=== PATIENT | male | born 1965 | race Caucasian/White ===

== ENCOUNTER 2016-07-19 14:20 | Emergency (ER) | payer MEDICAID ==
[~2016-07-19] VITALS: Ht 172.7 cm; Wt 112.0 kg
[2016-07-19 14:22] VITALS: BP 172/96; PULSE 105; RESP 16; TEMP 97.9; O2SAT 98
[2016-07-19] MEDS ORDERED: IBUP400T20 PO (15:11)
--- NOTE | 2016-07-19 15:11 | PD ---
HPI Chief Complaint: Psychiatric Symptoms Time Seen by Provider: 14:47 Travel History International Travel<30 days: No Contact w/Intl Traveler<30days: No Traveled to known affect area: No History of Present Illness HPI So 50-year-old man who presents to the emergency department complaining "I'm feeling pains in my body". Patient states he has pain in his right mid thigh when he flexes a certain way. He is very bizarre, probably schizophrenic. He is not known to our system here. He states he lives in [facility]. He also states he would like to get a tummy tuck always here. He's come out has for food asked several times. Does not appear to be any acute distress. History Past Medical History Narrative Medical Diabetes Social History Tobacco Use: No Review of Systems Except as stated in HPI: all other systems reviewed are Neg Physical Exam Narrative GENERAL: Well-appearing 50-year-old man, nontoxic. SKIN: Warm and dry. NECK: Trachea midline. No JVD. CARDIOVASCULAR: Regular rate and rhythm. No murmur appreciated. RESPIRATORY: No accessory muscle use. Clear to auscultation. Breath sounds equal bilaterally. GASTROINTESTINAL: Abdomen soft, non-tender, nondistended. Hepatic and splenic margins not palpable. MUSCULOSKELETAL: No obvious deformities. No edema. NEUROLOGICAL: Awake and alert. No obvious cranial nerve deficits. Motor grossly within normal limits. Normal speech. PSYCHIATRIC: Bizarre. Lucent associations but not clearly psychotic this time. Does not appear to be responding to internal stimuli. Calm and directable. Data Data Last Documented VS Vital Signs Date Time Temp Pulse Resp B/P Pulse Ox O2 Delivery O2 Flow Rate FiO2 07/19/16 14:22 97.9 105 16 172/96 98 MDM Medical Decision Making Medical Screen Exam Complete: Yes Emergency Medical Condition: Yes Differential Diagnosis Schizophrenia, cognitive delay, other Narrative Course Medical decision making A 50-year-old man who complains of pain in his leg. He is very bizarre. Suspect he probably has underlying schizophrenia. States he lives here, he may be new to our area. States his children problem today. He has no family with him. Does not appear to be a threat to himself or others. We will give him some ibuprofen for his leg pain. Diagnosis Primary Impression: Right leg pain Additional Instructions: Take ibuprofen as needed for your leg pain. Follow-up with your primary physician for further evaluation. Return to the emergency department for any new or worsening symptoms. Med/Other Pt SpecificInfo: Prescription(s) given Scripts Ibuprofen 400 Mg [id number] Mg PO Q8H PRN (PAIN SCALE 1 TO 10) #20 TAB Ref 0 Prov:Migel Ahuja MD 07/19/16 Disposition: 01 DISCHARGE HOME Condition: Stable Migel Ahuja MD Jul 19, 2016 15:11
== END 2016-07-19 16:03 | disposition home or self-care (01) ==
LOC: NEPB 14:20
DX: M79.651 Pain in right thigh (principal); E11.9 Type 2 diabetes mellitus without complications; R46.1 Bizarre personal appearance
CPT/HCPCS: 99283

== ENCOUNTER 2016-08-15 12:08 | Inpatient (IN) | payer MEDICAID ==
[~2016-08-15] VITALS: Ht 172.7 cm; Wt 108.9 kg
[2016-08-15] VITALS (9 sets, daily range): BP systolic 139–172; BP diastolic 74–106; PULSE 87–110; RESP 14–20; TEMP 97.6–98.5; O2SAT 94–100
[~2016-08-15 12:08] MED LIST: IBUP400T20 PO
--- NOTE | 2016-08-15 12:14 | PD ---
Physical Exam Time Seen by Provider: 12:10 Narrative 50 year old male presents pain in various part of body for "couple of days" that comes and goes. Here july 19 with similar complaints. Also having complaint of "unclear thoughts" and anxiety. VSS Seen at triage desk. Awaiting bed placement. Data Data Last Documented VS Vital Signs Date Time Temp Pulse Resp B/P Pulse Ox O2 Delivery O2 Flow Rate FiO2 08/15/16 12:09 97.6 110 20 139/89 96 Room Air [facility] Medical Record Reviewed: Yes Supervised Visit with HARESH: Yes Bakari Teran Aug 15, 2016 12:14
--- NOTE | 2016-08-15 12:44 | PD ---
HPI Chief Complaint: Psychiatric Symptoms Time Seen by Provider: 12:37 Travel History International Travel<30 days: No Contact w/Intl Traveler<30days: No Traveled to known affect area: No History of Present Illness HPI 50-year-old male that presents to the ED for evaluation of psych. Patient comes here voluntarily requesting psych evaluation secondary to his nervousness and anxiety. Per patient he has a history of schizophrenia but he believes that he doesn't have it. He states that his been compliant with his medications. He denies any homicidal or suicidal ideation to me. Per patient he believes that he might have been misdiagnosed and he also tells me that he believes that the staff at the facility where he is staying is given him illegal drugs. When asked why patient hasn't mentioned this to the staff he says that they call him names and that is why he feels that they're giving him drugs. He somewhat paranoid. He states that he also believes that they aren't giving him illegal drugs because he has pain all over. Per patient the pains come and go. Patient was seen here in July for pain on his knee. At the time the doctor was concerned the patient did seem to have some sort of erratic behavior likely from schizophrenia. Patient states that he did have some chest pain that lasted a couple minutes to a few hours ago. He denies any pain at this time. Symptoms appear to be worsening and for an unclear amount of time. Patient is somewhat of a poor historian secondary to his paranoia. Symptoms appear to be moderate. PFSH Past Medical History Hiatal Hernia: Yes Schizophrenia: Yes Social History Alcohol Use: No Tobacco Use: No Substance Use: No Allergies-Medications (Allergen,Severity, Reaction): Coded Allergies: No Known Allergies (Unverified , 08/15/16) Reported Meds & Prescriptions Reported Meds & Active Scripts Active Ibuprofen 400 Mg Tab 400 Mg PO Q8H PRN Review of Systems ROS Limitations: Poor Historian Except as stated in HPI: all other systems reviewed are Neg Physical Exam Exam Limitations: Poor Historian Narrative GENERAL: SKIN: Warm and dry. HEAD: Atraumatic. Normocephalic. EYES: Pupils equal and round. No scleral icterus. No injection or drainage. ENT: No nasal bleeding or discharge. Mucous membranes pink and moist. Tongue is midline. No uvula deviation. NECK: Trachea midline. No JVD. CARDIOVASCULAR: Regular rate and rhythm. No murmurs, S3, S4. RESPIRATORY: No accessory muscle use. Clear to auscultation. Breath sounds equal bilaterally. GASTROINTESTINAL: Abdomen soft, non-tender, nondistended. Hepatic and splenic margins not palpable. MUSCULOSKELETAL: Extremities without clubbing, cyanosis, or edema. No obvious deformities. Full range of motion of the upper and lower extremities bilaterally. 2+ pulses bilaterally. NEUROLOGICAL: Awake and alert. No obvious cranial nerve deficits. Motor grossly within normal limits. Five out of 5 muscle strength in the arms and legs. Normal speech. PSYCHIATRIC: paranoid mood and affect; insight and judgment questionable secondary to paranoia Data Data Last Documented VS Vital Signs Date Time Temp Pulse Resp B/P Pulse Ox O2 Delivery O2 Flow Rate FiO2 08/15/16 12:30 105 14 08/15/16 12:30 98.0 141/74 100 Room Air Orders Complete Blood Count With Diff (08/15/16 12:18) Comprehensive Metabolic Panel (08/15/16 12:18) Psych Screen (08/15/16 12:18) Drug Screen, Random Urine (08/15/16 12:18) Alcohol (Ethanol) (08/15/16 12:18) Electrocardiogram (08/15/16 12:29) Troponin I (08/15/16 12:29) Chest, Single Ap (08/15/16 12:29) Iv Access Insert/Monitor (08/15/16 14:31) Sodium Chlor 0.9% 1000 Ml Inj (Ns 1000 M (08/15/16 14:31) Calcium Gluconate Inj (Calcium Gluconate (08/15/16 14:45) Potassium, Serum (K) (08/15/16 17:55) Ecg Monitoring (08/15/16 14:55) Oximetry (08/15/16 14:55) Insulin Human Regular Inj (Novolin R Inj (08/15/16 15:00) Dextrose 50% In Danica (Vial) Inj (D50w (Vi (08/15/16 15:00) Sodium Bicarbonate 8.4% Inj (Sodium Bica (08/15/16 15:00) Sodium Chlor 0.9% 1000 Ml Inj (Ns 1000 M (08/15/16 15:07) Calcium Gluconate Inj (Calcium Gluconate (08/15/16 15:30) Bedside Glucose GABI.AC&HS (08/15/16 15:50) Admit Order (Ed Use Only) (08/15/16 16:44) Labs Laboratory Tests Test 08/15/16 08/15/16 13:00 13:30 White Blood Count 6.3 TH/MM3 Red Blood Count 4.46 MIL/MM3 Hemoglobin 13.2 GM/DL Hematocrit 39.7 % Mean Corpuscular Volume 89.0 FL Mean Corpuscular Hemoglobin 29.5 PG Mean Corpuscular Hemoglobin 33.2 % Concent Red Cell Distribution Width 13.8 % Platelet Count 189 TH/MM3 Mean Platelet Volume 9.5 FL Neutrophils (%) (Auto) 62.8 % Lymphocytes (%) (Auto) 23.5 % Monocytes (%) (Auto) 7.0 % Eosinophils (%) (Auto) 6.1 % Basophils (%) (Auto) 0.6 % Neutrophils # (Auto) 4.0 TH/MM3 Lymphocytes # (Auto) 1.5 TH/MM3 Monocytes # (Auto) 0.4 TH/MM3 Eosinophils # (Auto) 0.4 TH/MM3 Basophils # (Auto) 0.0 TH/MM3 CBC Comment DIFF FINAL Differential Comment Sodium Level 135 MEQ/L Potassium Level 6.6 MEQ/L Chloride Level 105 MEQ/L Carbon Dioxide Level 20.9 MEQ/L Anion Gap 9 MEQ/L Blood Urea Nitrogen 7 MG/DL Creatinine 0.89 MG/DL Estimat Glomerular Filtration 90 ML/MIN Rate Random Glucose 1077 MG/DL Calcium Level 6.5 MG/DL Protein Corrected Calcium 7.5 MG/DL Total Bilirubin 0.4 MG/DL Aspartate Amino Transf 105 U/L (AST/SGOT) Alanine Aminotransferase 84 U/L (ALT/SGPT) Alkaline Phosphatase 56 U/L Troponin I LESS THAN 0.02 NG/ML Total Protein 5.0 GM/DL Albumin 2.4 GM/DL Ethyl Alcohol Level LESS THAN 3 MG/DL Urine Opiates Screen NEG Urine Barbiturates Screen NEG Urine Amphetamines Screen NEG Urine Benzodiazepines Screen POS Urine Cocaine Screen NEG Urine Cannabinoids Screen NEG MDM Medical Decision Making Medical Screen Exam Complete: Yes Emergency Medical Condition: Yes Medical Record Reviewed: Yes Interpretation(s) CBC & BMP Diagram 08/15/16 13:00 LFTS WNL tox screen positive for benzos. Differential Diagnosis Depression versus suicidal ideation versus anxiety versus adjustment disorder versus mood disorder versus bipolar disorder versus schizophrenia versus paranoid disorder versus psychosis versus substance abuse versus alcohol abuse versus alcohol induced psychosis versus homicidality addition versus cutting versus personality disorder versus chest pain versus a typical chest pain Narrative Course 50-year-old male that presents to the ED for evaluation of psych. Patient was properly examined and was found to have signs and symptoms consistent what appears to be psychiatric illness. Patient complained of some chest discomfort partially his 50 or so. We'll do an EKG and troponin to make sure there is no sign of acute disease. Labs and imaging will be drawn. Labs and imaging showed hyperkalemia and highly elevated sugar at 1,077. No sign of any gap acidosis. Case was discussed in my attending Dr. Roger who recommends starting patient on calcium gluconate, insulin as well as sodium bicarbonate. Patient was given 2 boluses of fluids. Patient will be admitted to medicine with psychiatric consultation. Patient agrees with this plan. Blood sugar was reassessed after patient was given insulin and apparently came down to 140. Questionable whether initial value was a true value realities will admit to medicine. I spoke with Dr. Mena who agrees to admission. I put a consult for psych. Diagnosis Primary Impression: Hyperglycemia due to type 2 diabetes mellitus Qualified Code: E11.65 - Type 2 diabetes mellitus with hyperglycemia, with long-term current use of insulin Additional Impressions: Hyperkalemia Schizophrenia Qualified Code: F20.0 - Paranoid schizophrenia Admitting Information Admitting Physician Requests: Admit Agustin Mercado Aug 15, 2016 12:44
[2016-08-15 13:33] LABS: BASOPHIL % 0.6 % (0.0-2.0); EOSINOPHIL # 0.4 TH/MM3 (0-0.4); EOSINOPHIL % 6.1 % (0.0-4.0); HEMATOCRIT 39.7 % (39.0-51.0); HEMO FLAGS DIFF FINAL; LYMPH % 23.5 % (9.0-44.0); LYMPHOCYTE # 1.5 TH/MM3 (1.0-4.8); MEAN CORPUSCULAR HEMOGLOBIN 29.5 PG (27.0-34.0); MEAN CORPUSCULAR HGB CONC 33.2 % (32.0-36.0); NEUT % 62.8 % (16.0-70.0); PLATELET COUNT 189 TH/MM3 (150-450); RED BLOOD COUNT 4.46 MIL/MM3 (4.50-5.90); RED CELL DISTRIBUTION WIDTH 13.8 % (11.6-17.2); WHITE BLOOD COUNT 6.3 TH/MM3 (4.0-11.0)
--- NOTE | 2016-08-15 13:38 | RADRPT ---
EXAM DATE/TIME: 08/15/2016 13:04 [facility] COMPARISON: No previous studies available for comparison. INDICATIONS : Chest pain. MEDICAL HISTORY : None. SURGICAL HISTORY : None. ENCOUNTER: Initial ACUITY: 1 day PAIN SCORE: 8/10 LOCATION: Left chest FINDINGS: Cardiomegaly and degenerative changes of the spine. Left basilar atelectasis. No definite consolidati on or effusion. CONCLUSION: Left basilar atelectatic changes are noted. Andrei Hudson MD on August 15, 2016 at 13:36 Board Certified Radiologist. This report was verified electronically.
[2016-08-15 14:13] LABS: AMPHETAMINE, URINE NEG (NEG); BARBITURATES, URINE NEG (NEG); COCAINE, URINE NEG (NEG)
[2016-08-15 14:28] LABS: ALKALINE PHOSPHATASE 56 U/L (45-117); ANION GAP 9 MEQ/L (5-15); AST (GOT) 105 U/L (15-37); BICARBONATE 20.9 MEQ/L (21.0-32.0); BLOOD UREA NITROGEN 7 MG/DL (7-18); CHLORIDE 105 MEQ/L (98-107); GLOMERULAR FILTRATION RATE 90 ML/MIN (>89); SODIUM (NA) 135 MEQ/L (136-145); TOTAL BILIRUBIN ADULT 0.4 MG/DL (0.2-1.0)
[2016-08-15 14:29] LABS: POTASSIUM 6.6 MEQ/L (3.5-5.1)
[2016-08-15] MEDS ORDERED: SODIUM CHLOR 0.9% 1000 ML INJ 1,000 ML IV ONE (14:31)
[2016-08-15] MEDS ORDERED: CALCIUM GLUCONATE INJ 1 GM in DEXTROSE 5% IN WATER 100ML INJ 100 ML IV ONE ×2 (14:45)
[2016-08-15 14:52] LABS: ALT (GPT) 84 U/L (12-78); CALCIUM-PROTEIN CORRECTED 7.5 MG/DL (8.5-10.1)
[2016-08-15] MEDS ORDERED: SODIUM BICARBONATE 8.4% SOLN 50 MEQ/50 ML VIAL SLOW IVP ONE (15:00)
[2016-08-15] MEDS ORDERED: DEXTROSE 50% IN WATER 50 ML VIAL(D50) IV PUSH ONE (15:00)
[2016-08-15] MEDS ORDERED: INSULIN HUMAN REGULAR 1,000 UNITS/10 ML VIAL IV PUSH ONE (15:00)
[2016-08-15] MEDS ORDERED: SODIUM CHLOR 0.9% 1000 ML INJ 1,000 ML IV SCH (15:07)
[2016-08-15] MEDS ORDERED: CALCIUM GLUCONATE 10% 1 GM/10 ML VIAL SLOW IVP ONE (15:30)
--- NOTE | 2016-08-15 17:02 | HHI.HP ---
[facility] Primary Care Physician No Primary Care Physician Admission Diagnosis hyperkalemia, hyperglycemia, schizophrenia Diagnoses: Chief Complaint: Pain all over, anxiety and increased nervousness Travel History International Travel<30 Days: No Contact w/Intl Traveler <30 Da: No Traveled to Known Affected Are: No History of Present Illness 50 y/o male with a history of schizophrenia (which patient does deny), and DM presented to the ED with complaints of pain all over body, anxiety and nervousness. Patient states he does see a psychiatrist, he is from a residential and they give him medications but he is unsure what they are and what they are for. He is complaining of pain all over his body, mainly in his abdomen and in his chest. He describes the chest pain as burning intermittent left sided chest pain that comes and goes and he has associated anxiety. He states lately he has been very anxious, nervous and is not sleeping well. He states he does live in a SNF and states it is not going well but he does not want to talk about it. He is requesting to be admitted to the psych barragan to be evaluated. He states he is eating well and having increased urination. He states they do not check his sugar at the facility. He denies any thoughts of hurting himself or others. He also denies any fever, chills, sob, or dizziness. Review of Systems Constitutional: DENIES: Fever, Chills Endocrine: COMPLAINS OF: Polyuria, Polyphagia Respiratory: COMPLAINS OF: Cough, DENIES: Sputum production, Shortness of breath Cardiovascular: COMPLAINS OF: Chest pain Gastrointestinal: DENIES: Constipation, Diarrhea, Nausea, Vomiting Genitourinary: DENIES: Dysuria Musculoskeletal: COMPLAINS OF: Joint pain, Back pain Integumentary: DENIES: Rash Hematologic/lymphatic: DENIES: Lymphadenopathy Immunologic/allergic: DENIES: Urticaria Neurologic: DENIES: Headache Psychiatric: COMPLAINS OF: Anxiety, Agitation Past Family Social History Past Medical History DM Liver problems he has been told Past Surgical History Cholecystectomy Reported Medications Reported Meds & Active Scripts Active Ibuprofen 400 Mg Tab 400 Mg PO Q8H PRN Allergies: Coded Allergies: No Known Allergies (Unverified , 08/15/16) Active Ordered Medications Current Medications Medications (Trade) Dose Ordered Sig/Jenn Route Start Time Stop Time Status Last Admin (NS Flush) 2 ml UNSCH PRN IV FLUSH 08/15/16 17:30 UNV (NS Flush) 2 ml BID IV FLUSH 08/15/16 21:00 UNV (Zofran Inj) 4 mg Q6H PRN IVP 08/15/16 17:30 UNV (Milk Of Magnesia Liq) 30 ml Q12H PRN PO 08/15/16 17:30 UNV (Senokot) 17.2 mg Q12H PRN PO 08/15/16 17:30 UNV (Narcan Inj) 0.4 mg UNSCH PRN IV 08/15/16 17:30 UNV Family History Family history significant for DM. Social History Tobacco use: Denies Alcohol use: Denies Illicit drug use: Denies Physical Exam Vital Signs Vital Signs Date Time Temp Pulse Resp B/P Pulse Ox O2 Delivery O2 Flow Rate FiO2 08/15/16 12:30 105 14 08/15/16 12:30 98.0 105 14 141/74 100 Room Air 08/15/16 12:09 97.6 110 20 139/89 96 Room Air Physical Exam GENERAL: This is a well-nourished, well-developed patient, who is very anxious SKIN: Cool and dry. Darkening of skin below posterior neck. HEAD: Atraumatic. Normocephalic. No temporal or scalp tenderness. EYES: Pupils equal round and reactive. . No injection or drainage. ENT: Nose without bleeding, purulent drainage or septal hematoma. Airway patent. NECK: Trachea midline. No JVD or lymphadenopathy. CARDIOVASCULAR: Regular rate and rhythm without murmurs, gallops, or rubs. RESPIRATORY: Clear to auscultation. Breath sounds equal bilaterally. No wheezes , rales, or rhonchi. GASTROINTESTINAL: Abdomen soft, generalized tenderness, nondistended. No hepato- splenomegaly, or palpable masses. No guarding. Left CVA tenderness MUSCULOSKELETAL: Extremities without clubbing, cyanosis, or edema. No joint tenderness, effusion, or edema noted. No calf tenderness. NEUROLOGICAL: Awake and alert. Motor and sensory grossly within normal limits. Five out of 5 muscle strength in all muscle groups. Normal speech. Laboratory Laboratory Tests Test 08/15/16 08/15/16 13:00 13:30 White Blood Count 6.3 Red Blood Count 4.46 Hemoglobin 13.2 Hematocrit 39.7 Mean Corpuscular Volume 89.0 Mean Corpuscular Hemoglobin 29.5 Mean Corpuscular Hemoglobin 33.2 Concent Red Cell Distribution Width 13.8 Platelet Count 189 Mean Platelet Volume 9.5 Neutrophils (%) (Auto) 62.8 Lymphocytes (%) (Auto) 23.5 Monocytes (%) (Auto) 7.0 Eosinophils (%) (Auto) 6.1 Basophils (%) (Auto) 0.6 Neutrophils # (Auto) 4.0 Lymphocytes # (Auto) 1.5 Monocytes # (Auto) 0.4 Eosinophils # (Auto) 0.4 Basophils # (Auto) 0.0 CBC Comment DIFF FINAL Differential Comment Sodium Level 135 Potassium Level 6.6 Chloride Level 105 Carbon Dioxide Level 20.9 Anion Gap 9 Blood Urea Nitrogen 7 Creatinine 0.89 Estimat Glomerular Filtration 90 Rate Random Glucose 1077 Calcium Level 6.5 Protein Corrected Calcium 7.5 Total Bilirubin 0.4 Aspartate Amino Transf 105 (AST/SGOT) Alanine Aminotransferase 84 (ALT/SGPT) Alkaline Phosphatase 56 Troponin I LESS THAN 0.02 Total Protein 5.0 Albumin 2.4 Ethyl Alcohol Level LESS THAN 3 Urine Opiates Screen NEG Urine Barbiturates Screen NEG Urine Amphetamines Screen NEG Urine Benzodiazepines Screen POS Urine Cocaine Screen NEG Urine Cannabinoids Screen NEG Result Diagram: 08/15/16 1300 08/15/16 1300 Imaging Last Impressions Chest X-Ray 08/15/16 1229 Signed Impressions: Service Date/Time: Monday, August 15, 2016 13:04 - CONCLUSION: Left basilar atelectatic changes are noted. Andrei Hudson MD Assessment and Plan Problem List: (1) Schizophrenia ICD Code: F20.9 Status: Acute (2) Hyperkalemia ICD Code: E87.5 Status: Acute (3) Hyperglycemia due to type 2 diabetes mellitus ICD Code: E11.65 Status: Acute (4) Abdominal pain ICD Code: R10.9 Status: Acute (5) Chest pain ICD Code: R07.9 Status: Acute Assessment and Plan 50 y/o male with a history of schizophrenia (which patient does deny), and DM presented to the ED with complaints of pain all over body, anxiety and nervousness. Schizophrenia, patient denies a history at this time, but may take medications -Consult psych for recommendations -Ativan for anxiety Abdominal pain, with cva tenderness, non distended, diffuse pain all over. LFTs are elevated and the pt says he has a history of liver problems. -UA to rule out UTI -trend LFTs. Add lipase -PPI. -pain control as needed. -serial abdominal exams -imaging and hepatitis profile if needed Chest pain, atypical Labs: Troponin .02 EKG with no obvious ischemia -Serial troponin and ekgs ordered -Monitor telemetry Hyperkalemia, potassium 6.6 Possibly a lab error. -s/p 10 units of insulin, bicarb and dextrose given in ED -Repeat BMP now -BMP in AM -telemetry Hyperglycemia, glucose on labs 1077, repeat fingerstick 140, hx of diabetes Again, likely lab error -Recheck BMP now -Accu checks Q4H will cover if needed -start treatment as indicated DVT prophylaxis: SCDs Written by BLANCO Hurtado acting as scribe for Dr. Mena on 08/15/16 at 17: 00 Discussed Condition With Patient, RN and ED physician Physician Certification 2 Midnight Certification Type: Admission for Inpatient Services Order for Inpatient Services The services are ordered in accordance with Medicare regulations or non- Medicare payer requirements, as applicable. In the case of services not specified as inpatient-only, they are appropriately provided as inpatient services in accordance with the 2-midnight benchmark. Estimated LOS (days): 2 days is the estimated time the patient will need to remain in the hospital, assuming treatment plan goals are met and no additional complications. Post-Hospital Plan: Not yet determined Notes: All or portions of this note were transcribed by scribe [Kiana Sage]. I, Dr. Hernan Mena personally performed the history, physical exam, and medical decision making; and confirmed the accuracy of the information in the transcribed note. Authenticated by Dr. Hernan Mena on 08/15/16 at 17:58. Problem Qualifiers (1) Schizophrenia: Qualified Code: F20.0 - Paranoid schizophrenia (2) Hyperglycemia due to type 2 diabetes mellitus: Qualified Code: E11.65 - Type 2 diabetes mellitus with hyperglycemia, with long -term current use of insulin Kiana Sage Aug 15, 2016 17:02 Hernan Mena DO Aug 15, 2016 17:58
[2016-08-15] MEDS ORDERED: NALOXONE HCL 0.4 MG/ML AMP IV PRN (17:30)
[2016-08-15] MEDS ORDERED: SODIUM CHLORIDE 0.9% FLUSH 10 ML FLUSH IV FLUSH PRN (17:30)
[2016-08-15] MEDS ORDERED: SENNOSIDES 8.6 MG TAB PO PRN (17:30)
[2016-08-15] MEDS ORDERED: ONDANSETRON HCL 4 MG/2 ML VIAL IVP PRN (17:30)
[2016-08-15] MEDS ORDERED: MAGNESIUM HYDROXIDE SUSP 30 ML CUP PO PRN (17:30)
[2016-08-15] MEDS ORDERED: GLUCAGON 1 MG/ML VIAL OTHER PRN (18:00)
[2016-08-15] MEDS: PANTOPRAZOLE SOD 40 MG DELAYED RELEASE TAB PO SCH (18:00)
[2016-08-15] MEDS ORDERED: DEXTROSE 50% IN WATER 50 ML VIAL(D50) IV PUSH PRN (18:00)
[2016-08-15 19:18] LABS: ALKALINE PHOSPHATASE 85 U/L (45-117); ALT (GPT) 133 U/L (12-78); ANION GAP 8 MEQ/L (5-15); AST (GOT) 107 U/L (15-37); BICARBONATE 29.5 MEQ/L (21.0-32.0); BLOOD UREA NITROGEN 7 MG/DL (7-18); CHLORIDE 102 MEQ/L (98-107); CREATINE KINASE 137 U/L (39-308); GLOMERULAR FILTRATION RATE 121 ML/MIN (>89); INDIRECT BILIRUBIN 0.4 MG/DL (0.0-0.8); POTASSIUM 4.4 MEQ/L (3.5-5.1); SODIUM (NA) 139 MEQ/L (136-145); TOTAL BILIRUBIN ADULT 0.5 MG/DL (0.2-1.0)
[2016-08-15] MEDS: SODIUM CHLORIDE 0.9% FLUSH 10 ML FLUSH IV FLUSH SCH (20:36)
[2016-08-15] MEDS: INSULIN ASPART SUPPLEMENTAL SCALE SQ SCH (20:44)
[2016-08-15] MEDS: LORazepam 0.5 MG TAB PO PRN (23:14)
[2016-08-16] VITALS (7 sets, daily range): BP systolic 136–175; BP diastolic 82–108; PULSE 85–99; RESP 16–20; TEMP 97.7–98.5; O2SAT 91–96
[2016-08-16 01:24] LABS: CREATINE KINASE 111 U/L (39-308)
[2016-08-16] MEDS: LORazepam 0.5 MG TAB PO PRN (05:50)
[2016-08-16] MEDS: INSULIN ASPART SUPPLEMENTAL SCALE SQ SCH ×4 (06:22→20:57)
[2016-08-16] MEDS ORDERED: ACET325T PO (08:32)
[2016-08-16] MEDS ORDERED: AMLO5TAB2 PO (08:34)
[2016-08-16] MEDS ORDERED: BENZ1TAB PO (08:35)
[2016-08-16] MEDS ORDERED: CLON1TAB PO (08:36)
[2016-08-16] MEDS ORDERED: DIVA500T3 PO (08:39)
[2016-08-16] MEDS ORDERED: DIVA250T3 PO (08:39)
[2016-08-16] MEDS ORDERED: HALO1TAB PO (08:40)
[2016-08-16] MEDS ORDERED: LISI10TA3 PO (08:41)
[2016-08-16] MEDS ORDERED: LORA10TA PO (08:43)
[2016-08-16] MEDS ORDERED: MELA5TAB15 PO (08:44)
[2016-08-16] MEDS ORDERED: METF1000 PO (08:45)
[2016-08-16] MEDS ORDERED: NAPR500T PO (08:46)
[2016-08-16] MEDS ORDERED: OLAN15TA PO (08:47)
[2016-08-16] MEDS ORDERED: OMEP20TA PO (08:49)
[2016-08-16] MEDS ORDERED: TRAZ150T75 PO (08:51)
[2016-08-16] MEDS ORDERED: ERGO1CAP10 PO (08:53)
[2016-08-16] MEDS: SODIUM CHLORIDE 0.9% FLUSH 10 ML FLUSH IV FLUSH SCH ×2 (09:00→20:54)
[2016-08-16] MEDS: PANTOPRAZOLE SOD 40 MG DELAYED RELEASE TAB PO SCH (09:50)
--- NOTE | 2016-08-16 10:22 | EKG ---
Date Performed: 08/16/2016 Time Performed: 05:48:36 PTAGE: 50 years EKG: Sinus rhythm Poor R wave progression - probable normal variant Low QRS voltages in precordial leads Borderline EC G PREVIOUS TRACING : 08/16/2016 00.33 DOCTOR: Migel Alarcon Interpretating Date/Time 08/16/2016 10:21:01
--- NOTE | 2016-08-16 10:30 | EKG ---
Date Performed: 08/16/2016 Time Performed: 00:33:40 PTAGE: 50 years EKG: Sinus rhythm Low QRS voltages in precordial leads Borderline ECG PREVIOUS TRACING : 08/15/2016 12.54 DOCTOR: Migel Alarcon Interpretating Date/Time 08/16/2016 10:28:02
[2016-08-16 10:54] LABS: BASOPHIL % 0.6 % (0.0-2.0); EOSINOPHIL # 0.4 TH/MM3 (0-0.4); EOSINOPHIL % 7.4 % (0.0-4.0); HEMO FLAGS DIFF FINAL; LYMPH % 26.2 % (9.0-44.0); LYMPHOCYTE # 1.4 TH/MM3 (1.0-4.8); MEAN CELL VOLUME 88.9 FL (80.0-100.0); MEAN CORPUSCULAR HEMOGLOBIN 29.2 PG (27.0-34.0); MEAN CORPUSCULAR HGB CONC 32.8 % (32.0-36.0); MONO % 9.9 % (0.0-8.0); NEUT % 55.9 % (16.0-70.0); PLATELET COUNT 210 TH/MM3 (150-450); RED BLOOD COUNT 4.72 MIL/MM3 (4.50-5.90); RED CELL DISTRIBUTION WIDTH 13.9 % (11.6-17.2); WHITE BLOOD COUNT 5.3 TH/MM3 (4.0-11.0)
[2016-08-16 11:54] LABS: ALKALINE PHOSPHATASE 67 U/L (45-117); ALT (GPT) 113 U/L (12-78); ANION GAP 9 MEQ/L (5-15); AST (GOT) 77 U/L (15-37); BICARBONATE 29.8 MEQ/L (21.0-32.0); BLOOD UREA NITROGEN 9 MG/DL (7-18); CHLORIDE 99 MEQ/L (98-107); GLOMERULAR FILTRATION RATE 121 ML/MIN (>89); POTASSIUM 3.8 MEQ/L (3.5-5.1); SODIUM (NA) 138 MEQ/L (136-145); TOTAL BILIRUBIN ADULT 0.5 MG/DL (0.2-1.0)
--- NOTE | 2016-08-16 11:58 | EKG ---
Date Performed: 08/15/2016 Time Performed: 12:54:57 PTAGE: 50 years EKG: SINUS TACHYCARDIA LOW QRS VOLTAGE IN PRECORDIAL LEADS ST ELEVATION, CONSIDER INFERIOR INJUR Y ACUTE IN NO PREVIOUS TRACING DOCTOR: Migel Alarcon Interpretating Date/Time 08/16/2016 11:53:18
--- NOTE | 2016-08-16 12:44 | HHI.PR ---
Subjective Remarks The patient says he was feeling a little bit better than yesterday. He was tolerating a diet. He said he had some allergies. Discussed with nursing. Objective Vitals Vital Signs Date Time Temp Pulse Resp B/P Pulse Ox O2 Delivery O2 Flow Rate FiO2 08/16/16 12:00 98.0 99 18 161/106 91 08/16/16 09:25 Room Air 08/16/16 08:30 87 08/16/16 08:00 98.4 88 20 166/91 92 08/16/16 04:20 98.4 88 16 175/108 93 08/15/16 23:35 98.3 96 16 140/91 94 08/15/16 21:00 Room Air 08/15/16 20:23 89 08/15/16 20:12 98.2 98 18 171/106 96 08/15/16 19:00 98.5 94 18 172/105 95 08/15/16 18:35 90 14 99 08/15/16 18:06 92 14 147/96 98 08/15/16 16:00 97.9 88 14 142/90 99 08/15/16 16:00 87 14 140/90 98 Room Air 08/15/16 14:00 99 145/80 98 I/O 08/15/16 08/15/16 08/15/16 08/16/16 08/16/16 08/16/16 07:00 15:00 23:00 07:00 15:00 23:00 Intake Total 0 ml 240 ml Output Total 1300 ml 0 ml Balance -1300 ml 240 ml Intake Oral 0 ml 240 ml Output Urine Total 1300 ml 0 ml # Bowel Movements 0 0 Result Diagram: 08/16/16 0948 08/16/16 0948 Imaging Last Impressions Chest X-Ray 08/15/16 1229 Signed Impressions: Service Date/Time: Monday, August 15, 2016 13:04 - CONCLUSION: Left basilar atelectatic changes are noted. Andrei Hudson MD Objective Remarks GENERAL: This is a well-nourished, well-developed patient, in no apparent distress. SKIN: Cool and dry. Darkening of skin below posterior neck. HEAD: Atraumatic. Normocephalic. No temporal or scalp tenderness. EYES: Pupils equal round and reactive. . No injection or drainage. ENT: Nose without bleeding, purulent drainage or septal hematoma. Airway patent. NECK: Trachea midline. No JVD or lymphadenopathy. CARDIOVASCULAR: Regular rate and rhythm without murmurs, gallops, or rubs. RESPIRATORY: Clear to auscultation. Breath sounds equal bilaterally. No wheezes , rales, or rhonchi. GASTROINTESTINAL: Abdomen soft, generalized tenderness, nondistended. No hepato- splenomegaly, or palpable masses. No guarding. MUSCULOSKELETAL: Extremities without clubbing, cyanosis, or edema. No joint tenderness, effusion, or edema noted. No calf tenderness. NEUROLOGICAL: Awake and alert. Motor and sensory grossly within normal limits. Five out of 5 muscle strength in all muscle groups. Normal speech. PSYCH: Slightly flattened affect. Medications and IVs Current Medications Medications (Trade) Dose Ordered Sig/Jenn Route Start Time Stop Time Status Last Admin (NS Flush) 2 ml UNSCH PRN IV FLUSH 08/15/16 17:30 (NS Flush) 2 ml BID IV FLUSH 08/15/16 21:00 (Zofran Inj) 4 mg Q6H PRN IVP 08/15/16 17:30 (Milk Of Magnesia Liq) 30 ml Q12H PRN PO 08/15/16 17:30 (Senokot) 17.2 mg Q12H PRN PO 08/15/16 17:30 (Narcan Inj) 0.4 mg UNSCH PRN IV 08/15/16 17:30 (D50w (Vial) Inj) 25 ml UNSCH PRN IV PUSH 08/15/16 18:00 (Glucagon Inj) 1 mg UNSCH PRN OTHER 08/15/16 18:00 (Ativan) 0.5 mg Q6H PRN PO 08/15/16 18:00 08/16/16 05:50 (Protonix) 40 mg DAILY PO 08/15/16 18:00 08/16/16 09:50 (Roxicodone) 5 mg Q4H PRN PO 08/15/16 18:00 08/16/16 12:10 (Norvasc) 5 mg DAILYAC PRN PO 08/16/16 12:45 UNV (Cogentin) 1 mg BID PO 08/16/16 21:00 UNV (Depakote Er) 250 mg BID PO 08/16/16 21:00 UNV (Depakote Er) 500 mg BID PO 08/16/16 12:45 UNV (Haldol) 1 mg BID PO 08/16/16 21:00 UNV (Claritin) 10 mg DAILY PO 08/16/16 12:45 UNV (ZyPREXA) 15 mg HS PO 08/16/16 21:00 UNV (Desyrel) 150 mg HS PO 08/16/16 21:00 UNV A/P Problem List: (1) Schizophrenia ICD Code: F20.9 Status: Acute (2) Hyperkalemia ICD Code: E87.5 Status: Acute (3) Hyperglycemia due to type 2 diabetes mellitus ICD Code: E11.65 Status: Acute (4) Abdominal pain ICD Code: R10.9 Status: Acute (5) Chest pain ICD Code: R07.9 Status: Acute Assessment and Plan 50 y/o male with a history of schizophrenia (which patient does deny), and DM presented to the ED with complaints of pain all over body, anxiety and nervousness. Schizophrenia Patient denies a history at this time, but does take several medications. - Consult psych for recommendations. - Ativan for anxiety. - resume home meds for now. Abdominal pain With cva tenderness on admission, non distended, diffuse pain all over. LFTs are elevated and the pt says he has a history of liver problems. No leukocytosis or fever. Abdominal pain has improved. - UA to rule out UTI. - trend LFTs. Improving. - PPI. - pain control as needed. - KUB. - CT abdomen if pain does not continue to improve. Chest pain, atypical Troponins negative EKG with no obvious ischemia - telemetry. DM Glucose 1077 on admission, repeat fingerstick 140. Lab error. - insulin sliding scale. - diabetic diet. DVT prophylaxis: SCDs Discharge Planning Awaiting psych eval. Problem Qualifiers (1) Schizophrenia: Qualified Code: F20.0 - Paranoid schizophrenia (2) Hyperglycemia due to type 2 diabetes mellitus: Qualified Code: E11.65 - Type 2 diabetes mellitus with hyperglycemia, with long -term current use of insulin Hernan Mena DO Aug 16, 2016 12:44
[2016-08-16] MEDS ORDERED: amLODIPine BESYLATE 5 MG TAB PO PRN (13:45)
--- NOTE | 2016-08-16 13:50 | RADRPT ---
EXAM DATE/TIME: 08/16/2016 13:31 [facility] COMPARISON: No previous studies available for comparison. INDICATIONS : Abdominal pain. MEDICAL HISTORY : Hypertension. Gastroesophageal reflux disease. Diabetes. SURGICAL HISTORY : None. ENCOUNTER: Initial ACUITY: 2 days PAIN SCORE: 4/10 LOCATION: Abdomen, all quadrants. FINDINGS: Supine view of the abdomen was performed. The abdominal bowel gas pattern is normal. No abnormal ma sses, calcifications, or organomegaly is seen. The osseous structures are unremarkable. CONCLUSION: 1. Nonobstructive bowel gas pattern. Andrei Hudson MD on August 16, 2016 at 13:49 Board Certified Radiologist. This report was verified electronically.
[2016-08-16] MEDS: LISINOPRIL 10 MG TAB PO SCH (13:56)
[2016-08-16] MEDS: LORATADINE 10 MG TAB PO SCH (13:56)
[2016-08-16] MEDS: DIVALPROEX SODIUM E.R. 500 MG TAB PO SCH ×2 (14:00→20:55)
--- NOTE | 2016-08-16 15:43 | PD.CONS ---
Provisional Diagnosis Admission Date Aug 15, 2016 at 16:47 Jesse I. Chronic paranoid schizophrenia Jesse II. Deferred Jesse III. HTN, DM Jesse IV. Chronic mental illness Jesse V. 55 History of Present Illness Service Psychiatry Consult Requested By Primary Care Physician No Primary Care Physician HPI The patient is a 50-year-old descent man, domiciled in [facility] , single, unemployed, with extensive psychiatric history of schizophrenia, a previous psychiatric hospitalizations, no previous suicidal attempts, and active outpatient psychiatric care in his living facility by visiting psychiatrist Farooq Vega, he is on Depakote 750 mg twice a day, Haldol 1 mg twice a day, olanzapine 50 mg at bedtime, Zoloft 100 mg, clonazepam 1 mg 3 times a day , trazodone 150 mg at bedtime, benztropine 1 mg twice a day, psychotropic regimen in which the patient has been stable for several years now, patient has medical history hypertension and DM, who presented to the ED with complaints of pain all over body, anxiety and nervousness. Consulted to psychiatry for medication reconciliation and recommendations. On psychiatric evaluation patient is calm, cooperative and pleasant. He says that he came to the hospital due to abdominal pain, but he feels much better now. Patient clarifies that he has been diagnosed with schizophrenia since the age of [age] years old, with multiple hospitalizations, but he has been stable for several years now. Patient says that he does not think that he is a schizophrenic anymore and he does not think that he needs to take all those medications. He denies depressive symptoms, he denies anhedonia, he denies hopelessness, denies helplessness, he denies suicidal and homicidal ideation. He denies anxiety at this moment, he denies perceptual disturbances, he denies visual and auditory hallucinations. Patient is logical, coherent and relevant in his conversation. No agitation, no aggressive behavior, no paranoia, no delusions, no flight of ideas, no delusions of reference are observed during this evaluation. Patient is fully oriented and history, no attention deficit, no gross cognitive impairment observed. He denies use of illicit drugs and alcohol. Collateral information from [facility] was obtained, I spoke personally with Beryl pacheco. She clarifies the patient came to the hospital due to medical reasons and now for psychiatric concerns. Patient had been stable mentally and at baseline for many years. She confirms patient's medications. She also clarifies the patient sees a psychiatrist about twice a month. . Review of Systems Constitutional: DENIES: Diaphoretic episodes, Fatigue, Fever, Weight gain, Weight loss, Chills, Dizziness, Change in appetite, Night Sweats Endocrine: DENIES: Heat/cold intolerance, Polydipsia, Polyuria, Polyphagia Eyes: DENIES: Blurred vision, Diplopia, Eye inflammation, Eye pain, Vision loss , Photosensitivity, Double Vision Ears, nose, mouth, throat: DENIES: Tinnitus, Hearing loss, Vertigo, Nasal discharge, Oral lesions, Throat pain, Hoarseness, Ear Pain, Running Nose, Epistaxis, Sinus Pain, Toothache, Odynophagia Respiratory: DENIES: Apneas, Cough, Snoring, Wheezing, Hemoptysis, Sputum production, Shortness of breath Cardiovascular: DENIES: Chest pain, Palpitations, Syncope, Dyspnea on Exertion , PND, Lower Extremity Edema, Orthopnea, Claudication Gastrointestinal: DENIES: Abdominal pain, Black stools, Bloody stools, Constipation, Diarrhea, Nausea, Vomiting, Difficulty Swallowing, Anorexia Musculoskeletal: DENIES: Joint pain, Muscle aches, Stiffness, Joint Swelling, Back pain, Neck pain Integumentary: DENIES: Abnormal pigmentation, Nail changes, Pruritus, Rash Hematologic/lymphatic: DENIES: Bruising, Lymphadenopathy Immunologic/allergic: DENIES: Eczema, Urticaria Neurologic: DENIES: Abnormal gait, Headache, Localized weakness, Paresthesias, Seizures, Speech Problems, Tremor, Poor Balance Psychiatric: DENIES: Anxiety, Confusion, Mood changes, Depression, Hallucinations, Agitation, Suicidal Ideation, Homicidal Ideation, Delusions Past Family Social History Coded Allergies: No Known Allergies (Unverified , 08/15/16) Active Scripts Ibuprofen 400 Mg Iqw162 Mg PO Q8H PRN (PAIN SCALE 1 TO 10) #20 TAB Ref 0 Prov:Migel Ahuja MD 07/19/16 Reported Medications Ergocalciferol (Vitamin D)50,000 Unit Cap50,000 Units PO SUNDAY #30 CAP Ref 1 08/16/16 Trazodone 150 Mg [id number] Mg PO HS #30 TAB Ref 1 08/16/16 Omeprazole 20 Mg Tab20 Mg PO DAILY #30 CAP Ref 1 08/16/16 Olanzapine 15 Mg Tab15 Mg PO HS #30 TAB Ref 2 08/16/16 Naproxen 500 Mg Llo697 Mg PO BID #60 TAB Ref 1 08/16/16 Metformin 1,000 Mg Tab1,000 Mg PO BIDPC #60 TAB Ref 1 With meals 08/16/16 Melatonin 5 Mg Tab5 Mg PO HS Ref 1 08/16/16 Loratadine 10 Mg Tab10 Mg PO DAILY Ref 1 08/16/16 Lisinopril 10 Mg Tab10 Mg PO AC BREAKFAST #30 TAB Ref 1 08/16/16 Haloperidol 1 Mg Tab1 Mg PO BID Ref 1 08/16/16 Divalproex ER 500 Mg Eie597 Mg PO BID #30 TAB Ref 1 08/16/16 Divalproex ER 250 Mg [id number] Mg PO BID #30 TAB Ref 1 08/16/16 Clonazepam 1 Mg Tab1 Mg PO TID #60 TAB Ref 1 08/16/16 Benztropine 1 Mg Tab1 Mg PO BID #60 TAB Ref 1 08/16/16 Amlodipine 5 Mg Tab5 Mg PO DAILY #30 TAB Ref 1 08/16/16 Acetaminophen 325 Mg Air925 Mg PO TID PRN (PAIN SCALE 1 TO 10) Ref 1 08/16/16 Current Medications Medications (Trade) Dose Ordered Sig/Jenn Route Start Time Stop Time Status Last Admin (NS Flush) 2 ml UNSCH PRN IV FLUSH 08/15/16 17:30 (NS Flush) 2 ml BID IV FLUSH 08/15/16 21:00 (Zofran Inj) 4 mg Q6H PRN IVP 08/15/16 17:30 (Milk Of Magnesia Liq) 30 ml Q12H PRN PO 08/15/16 17:30 (Senokot) 17.2 mg Q12H PRN PO 08/15/16 17:30 (Narcan Inj) 0.4 mg UNSCH PRN IV 08/15/16 17:30 (D50w (Vial) Inj) 25 ml UNSCH PRN IV PUSH 08/15/16 18:00 (Glucagon Inj) 1 mg UNSCH PRN OTHER 08/15/16 18:00 (Ativan) 0.5 mg Q6H PRN PO 08/15/16 18:00 08/16/16 05:50 (Protonix) 40 mg DAILY PO 08/15/16 18:00 08/16/16 09:50 (Roxicodone) 5 mg Q4H PRN PO 08/15/16 18:00 08/16/16 12:10 (Cogentin) 1 mg BID PO 08/16/16 21:00 (Depakote Er) 250 mg BID PO 08/16/16 21:00 (Depakote Er) 500 mg BID PO 08/16/16 14:00 (Haldol) 1 mg BID PO 08/16/16 21:00 (Claritin) 10 mg DAILY PO 08/16/16 14:00 08/16/16 13:56 (ZyPREXA) 15 mg HS PO 08/16/16 21:00 (Desyrel) 150 mg HS PO 08/16/16 21:00 (Prinivil) 10 mg DAILY PO 08/16/16 13:45 08/16/16 13:56 (Norvasc) 5 mg DAILY PO 08/17/16 09:00 Family History Patient denies Physical Exam On physical exam no agitation, no EPS, no tremors, no psychomotor retardation present Vital Signs Vital Signs Date Time Temp Pulse Resp B/P Pulse Ox O2 Delivery O2 Flow Rate FiO2 08/16/16 12:00 98.0 99 18 161/106 91 08/16/16 09:25 Room Air I/O 08/15/16 08/15/16 08/16/16 08:00 16:00 00:00 Intake Total 0 ml Output Total 1300 ml Balance -1300 ml Lab Results WBC 5.3, Hgb 4.7, HCT 42, NA 138, K3.8, BUN 9, creatinine 0.69 Mental Status Examination Appearance man, good hygiene, [facility], calm, cooperative and pleasant Speech: Unremarkable Orientation: x3 Memory: Unremarkable Thought Process: Logical Thought Content: Unremarkable Hallucination Type: None Suicidal Ideation: No Previous Suicide Attempts: No Homicidal Ideation: No Judgment: WNL Affect: Good Mood: Euthymic Motor Activity: Normal gait Assessment & Plan Problem List: (1) Schizophrenia Assessment & Plan: The patient is a 50-year-old man, domiciled in [facility] [facility], single, unemployed, with extensive psychiatric history of schizophrenia, a previous psychiatric hospitalizations, no previous suicidal attempts, and active outpatient psychiatric care in his living facility by visiting psychiatrist Farooq Vega, he is on Depakote 750 mg twice a day, Haldol 1 mg twice a day, olanzapine 50 mg at bedtime, Zoloft 100 mg, clonazepam 1 mg 3 times a day, trazodone 150 mg at bedtime, benztropine 1 mg twice a day, psychotropic regimen in which the patient has been stable for several years now , patient has medical history hypertension and DM, who presented to the ED with complaints of pain all over body, anxiety and nervousness. Consulted to psychiatry for medication reconciliation and recommendations. Significant evaluation the patient does not present any acute, concerning or significant or objective or subjective evidence of depression, anxiety, stanislaw or psychosis. The patient denies suicidal or homicidal ideation, he denies visual and auditory hallucinations. During the evaluation no paranoia, no delusions, no flight of ideas no delusions of reference are present. Patient concerns of discontinuing psychotropics must be discussed with outpatient psychiatrist as was explained to the patient and assurance services manager health care of his living facility. At this moment no psychiatric intervention is needed. He does not meet criteria for psychiatric admission. Patient can continue his current psychotropic regimen. Will add clonazepam 0.5 mg 3 times a day and Zoloft 100 mg daily, as he was taking before. Extensive support, motivation psycho education provided. Consult appreciated. ICD Code: F20.9 Assessment & Plan Estimated LOS: days Problem Qualifiers (1) Schizophrenia: Qualified Code: F20.0 - Paranoid schizophrenia Juan Manuel Todd MD Aug 16, 2016 15:43
[2016-08-16 16:03] LABS: HEMOGLOBIN A1a 1.1 %; HEMOGLOBIN A1b 2.7 %; HEMOGLOBIN Ao 82.1 %; HEMOGLOBIN LA1C 2.1 %; HEMOGLOBIN P3 3.8 %
[2016-08-16] MEDS: SERTRALINE HCL 100 MG TAB PO SCH (16:14)
[2016-08-16] MEDS: BENZTROPINE MESYLATE 1 MG TAB PO SCH (20:54)
[2016-08-16] MEDS: HALOPERIDOL 1 MG TAB PO SCH (20:55)
[2016-08-16] MEDS: clonazePAM 0.5 MG TAB PO SCH (20:55)
[2016-08-16] MEDS: DIVALPROEX SODIUM E.R. 250 MG TAB PO SCH (20:57)
[2016-08-16] MEDS ORDERED: traZODone HCL 50 MG TAB PO SCH (21:00)
[2016-08-17] VITALS: BP 153/84; PULSE 94; RESP 20; TEMP 97.4; O2SAT 91
[2016-08-17 04:00] VITALS: BP 125/72; PULSE 91; RESP 12; TEMP 98.7; O2SAT 84
[2016-08-17] MEDS: clonazePAM 0.5 MG TAB PO SCH ×2 (05:33→14:26)
[2016-08-17] MEDS: INSULIN ASPART SUPPLEMENTAL SCALE SQ SCH ×2 (06:20→11:44)
[2016-08-17 07:06] LABS: ANION GAP 8 MEQ/L (5-15); AST (GOT) 55 U/L (15-37); BICARBONATE 29.1 MEQ/L (21.0-32.0); BLOOD UREA NITROGEN 14 MG/DL (7-18); CHLORIDE 102 MEQ/L (98-107); GLOMERULAR FILTRATION RATE 128 ML/MIN (>89); SODIUM (NA) 139 MEQ/L (136-145)
[2016-08-17 07:11] LABS: ALKALINE PHOSPHATASE 70 U/L (45-117); ALT (GPT) 98 U/L (12-78); TOTAL BILIRUBIN ADULT 0.4 MG/DL (0.2-1.0)
[2016-08-17 08:00] VITALS: BP 135/86; PULSE 85; RESP 18; TEMP 98.1; O2SAT 94
[2016-08-17] MEDS: DIVALPROEX SODIUM E.R. 500 MG TAB PO SCH (08:31)
[2016-08-17] MEDS: DIVALPROEX SODIUM E.R. 250 MG TAB PO SCH (08:31)
[2016-08-17] MEDS: LISINOPRIL 10 MG TAB PO SCH (08:31)
[2016-08-17] MEDS: SODIUM CHLORIDE 0.9% FLUSH 10 ML FLUSH IV FLUSH SCH (08:31)
[2016-08-17] MEDS: PANTOPRAZOLE SOD 40 MG DELAYED RELEASE TAB PO SCH (08:31)
[2016-08-17] MEDS: LORATADINE 10 MG TAB PO SCH (08:31)
[2016-08-17] MEDS: BENZTROPINE MESYLATE 1 MG TAB PO SCH (08:31)
[2016-08-17] MEDS: HALOPERIDOL 1 MG TAB PO SCH (08:31)
[2016-08-17] MEDS: SERTRALINE HCL 100 MG TAB PO SCH (08:31)
[2016-08-17 08:32] VITALS: PULSE 94
[2016-08-17] MEDS ORDERED: amLODIPine BESYLATE 5 MG TAB PO SCH (09:00)
[2016-08-17] MEDS ORDERED: SENO8.6T5 PO (09:19)
[2016-08-17] MEDS ORDERED: OXYC-392 PO (09:19)
[2016-08-17] MEDS ORDERED: COLA100C3 PO (09:19)
[2016-08-17] MEDS ORDERED: CLON1TAB PO (09:19)
[2016-08-17] MEDS ORDERED: PANT40TA3 PO (09:21)
--- NOTE | 2016-08-17 09:21 | HHI.DCPOC ---
Discharge Care Plan Diagnosis: (1) Schizophrenia (2) Abdominal pain (3) Chest pain (4) Hyperglycemia due to type 2 diabetes mellitus Goals to Promote Your Health * To prevent worsening of your condition and complications * To maintain your health at the optimal level Directions to Meet Your Goals Take your medications as prescribed Follow your dietary instruction Follow activity as directed Keep your appointments as scheduled Take your immunizations and boosters as scheduled If your symptoms worsen call your PCP, if no PCP go to Urgent Care Center or Emergency Room Smoking is Dangerous to Your Health. Avoid second hand smoke Call the 24-hour hour crisis hotline for domestic abuse at Hernan Mena DO Aug 17, 2016 09:21
--- NOTE | 2016-08-17 09:28 | HHI.PR ---
Subjective Remarks The patient was ambulating. He said that he get some sleep overnight. He said that his abdominal pain was better but he still had some. He has not had a bowel movement yet. He says he still has anxiety. Discussed with nursing. Objective Vitals Vital Signs Date Time Temp Pulse Resp B/P Pulse Ox O2 Delivery O2 Flow Rate FiO2 08/17/16 08:00 Room Air 08/17/16 08:00 98.1 85 18 135/86 94 08/17/16 04:00 98.7 91 12 125/72 84 08/17/16 00:00 97.4 94 20 153/84 91 08/16/16 20:25 89 08/16/16 20:00 97.7 85 16 136/82 95 08/16/16 19:45 Room Air 08/16/16 16:00 98.5 88 18 147/95 96 08/16/16 12:00 98.0 99 18 161/106 91 08/16/16 09:25 Room Air I/O 08/16/16 08/16/16 08/16/16 08/17/16 08/17/16 08/17/16 07:00 15:00 23:00 07:00 15:00 23:00 Intake Total 240 ml 720 ml Output Total 0 ml Balance 240 ml 720 ml Intake Oral 240 ml 720 ml IV Total 0 ml Output Urine Total 0 ml # Voids 3 1 # Bowel Movements 0 0 0 Result Diagram: 08/16/16 0948 08/17/16 0545 Imaging Last Impressions Abdomen X-Ray 08/16/16 0000 Signed Impressions: Service Date/Time: Tuesday, August 16, 2016 13:31 - CONCLUSION: 1. Nonobstructive bowel gas pattern. Andrei Hudson MD Chest X-Ray 08/15/16 1229 Signed Impressions: Service Date/Time: Monday, August 15, 2016 13:04 - CONCLUSION: Left basilar atelectatic changes are noted. Andrei Hudson MD Objective Remarks GENERAL: This is a well-nourished, well-developed patient, in no apparent distress. SKIN: Cool and dry. Darkening of skin below posterior neck. HEAD: Atraumatic. Normocephalic. No temporal or scalp tenderness. EYES: Pupils equal round and reactive. . No injection or drainage. ENT: Nose without bleeding, purulent drainage or septal hematoma. Airway patent. NECK: Trachea midline. No JVD or lymphadenopathy. CARDIOVASCULAR: Regular rate and rhythm without murmurs, gallops, or rubs. RESPIRATORY: Clear to auscultation. Breath sounds equal bilaterally. No wheezes , rales, or rhonchi. GASTROINTESTINAL: Abdomen soft, generalized mild tenderness, nondistended. No hepato-splenomegaly, or palpable masses. No guarding. Decreased bowel sounds. MUSCULOSKELETAL: Extremities without clubbing, cyanosis, or edema. No joint tenderness, effusion, or edema noted. No calf tenderness. NEUROLOGICAL: Awake and alert. Motor and sensory grossly within normal limits. Five out of 5 muscle strength in all muscle groups. Normal speech. PSYCH: Slightly flattened affect. Procedures None. Medications and IVs Current Medications Medications (Trade) Dose Ordered Sig/Jenn Route Start Time Stop Time Status Last Admin (NS Flush) 2 ml UNSCH PRN IV FLUSH 08/15/16 17:30 (NS Flush) 2 ml BID IV FLUSH 08/15/16 21:00 (Zofran Inj) 4 mg Q6H PRN IVP 08/15/16 17:30 (Milk Of Magnesia Liq) 30 ml Q12H PRN PO 08/15/16 17:30 (Senokot) 17.2 mg Q12H PRN PO 08/15/16 17:30 (Narcan Inj) 0.4 mg UNSCH PRN IV 08/15/16 17:30 (D50w (Vial) Inj) 25 ml UNSCH PRN IV PUSH 08/15/16 18:00 (Glucagon Inj) 1 mg UNSCH PRN OTHER 08/15/16 18:00 (Protonix) 40 mg DAILY PO 08/15/16 18:00 08/17/16 08:31 (Roxicodone) 5 mg Q4H PRN PO 08/15/16 18:00 08/16/16 12:10 (Cogentin) 1 mg BID PO 08/16/16 21:00 08/17/16 08:31 (Depakote Er) 250 mg BID PO 08/16/16 21:00 08/17/16 08:31 (Depakote Er) 500 mg BID PO 08/16/16 14:00 08/17/16 08:31 (Haldol) 1 mg BID PO 08/16/16 21:00 08/17/16 08:31 (Claritin) 10 mg DAILY PO 08/16/16 14:00 08/17/16 08:31 (ZyPREXA) 15 mg HS PO 08/16/16 21:00 08/16/16 20:54 (Desyrel) 150 mg HS PO 08/16/16 21:00 08/16/16 20:56 (Prinivil) 10 mg DAILY PO 08/16/16 13:45 08/17/16 08:31 (Norvasc) 5 mg DAILY PO 08/17/16 09:00 08/17/16 08:31 (Zoloft) 100 mg DAILY PO 08/16/16 15:30 08/17/16 08:31 (KlonoPIN) 0.5 mg Q8H PO 08/16/16 22:00 08/17/16 05:33 A/P Problem List: (1) Schizophrenia ICD Code: F20.9 Status: Acute (2) Hyperkalemia ICD Code: E87.5 Status: Acute (3) Hyperglycemia due to type 2 diabetes mellitus ICD Code: E11.65 Status: Acute (4) Abdominal pain ICD Code: R10.9 Status: Acute (5) Chest pain ICD Code: R07.9 Status: Acute Assessment and Plan 50 y/o male with a history of schizophrenia (which patient does deny), and DM presented to the ED with complaints of pain all over body, anxiety and nervousness. Schizophrenia Patient denies a history at this time, but does take several medications. Psych was consulted for recommendations. - resume home meds and recommend outpatient psychiatry follow-up. Abdominal pain Non distended, diffuse mild pain all over. LFTs are elevated and the pt says he has a history of liver problems. No leukocytosis or fever. Abdominal pain has improved. LFTs are also improving. KUB unremarkable. The patient has not a bowel movement, may be secondary to constipation. - Recheck LFTs in 2-3 days. - PPI. - pain control as needed. - Bowel regimen. Chest pain, atypical Troponins negative. EKG with no obvious ischemia. - telemetry. DM Glucose 1077 on admission, repeat fingerstick 140. Secondary to lab error. Glucose currently well controlled. - insulin sliding scale. - diabetic diet. - Resume home medications. DVT prophylaxis: SCDs Discharge Planning Discharge home. Problem Qualifiers (1) Schizophrenia: Qualified Code: F20.0 - Paranoid schizophrenia (2) Hyperglycemia due to type 2 diabetes mellitus: Qualified Code: E11.65 - Type 2 diabetes mellitus with hyperglycemia, with long -term current use of insulin Hernan Mena DO Aug 17, 2016 09:28
[2016-08-17 12:00] VITALS: BP 137/91; PULSE 105; RESP 20; TEMP 99.2; O2SAT 95
== END 2016-08-17 14:45 | DRG 885 ==
LOC: NEPC 12:08 → NEDA 16:47 → N04B 18:57
PROVIDERS: ADMIT Hospitalist; ATTEND Hospitalist
DX: F20.0 Paranoid schizophrenia (principal); E11.65 Type 2 diabetes mellitus with hyperglycemia; I10 Essential (primary) hypertension; E87.5 Hyperkalemia; Z79.4 Long term (current) use of insulin; F41.9 Anxiety disorder, unspecified; R07.89 Other chest pain; K59.00 Constipation, unspecified
CPT/HCPCS: 71010; 74000; 80048; 80053; 80076; 80307; 82550; 82948; 83036; 83690; 84484; 85025; 93005; 96365; 96375; 96376; J0610; J1815; J7030

== ENCOUNTER 2016-09-19 17:42 | Inpatient (IN) | payer MEDICAID, MEDICARE ==
[~2016-09-19] VITALS: Ht 172.7 cm; Wt 107.9 kg
[2016-09-19] VITALS (9 sets, daily range): BP systolic 91–153; BP diastolic 53–101; PULSE 110–120; RESP 16–20; TEMP 97.3; O2SAT 90–96
[~2016-09-19 17:42] MED LIST changes: +ACET325T PO; +AMLO5TAB2 PO; +BENZ1TAB PO; +CLON1TAB PO; +COLA100C3 PO; +DIVA250T3 PO; +DIVA500T3 PO; +ERGO1CAP10 PO; +HALO1TAB PO; -IBUP400T20 PO; +LISI10TA3 PO; +LORA10TA PO; +MELA5TAB15 PO; +METF1000 PO; +OLAN15TA PO; +OMEP20TA PO; +OXYC-392 PO; +PANT40TA3 PO; +SENO8.6T5 PO; +TRAZ150T75 PO
[2016-09-19] MEDS ORDERED: SODIUM CHLOR 0.9% 1000 ML INJ 1,000 ML IV SCH ×2 (18:07→22:16)
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
[2016-09-19] MEDS ORDERED: ONDANSETRON HCL 4 MG/2 ML VIAL IVP ONE ×2 (18:15→19:30)
[2016-09-19] MEDS ORDERED: MORPHINE SULFATE 4 MG/ML INJ IV PUSH ONE (18:15)
[2016-09-19] MEDS ORDERED: SODIUM CHLORIDE 0.9% FLUSH 10 ML FLUSH IV FLUSH PRN ×2 (18:15→21:30)
[2016-09-19 18:39] LABS: AUTOMATED NEUTROPHIL # 4.8 TH/MM3 (1.8-7.7); BASOPHIL # 0.1 TH/MM3 (0-0.2); BASOPHIL % 0.7 % (0.0-2.0); EOSINOPHIL # 0.2 TH/MM3 (0-0.4); HEMATOCRIT 40.8 % (39.0-51.0); HEMO FLAGS DIFF FINAL; LYMPH % 25.6 % (9.0-44.0); LYMPHOCYTE # 1.9 TH/MM3 (1.0-4.8); MEAN CELL VOLUME 88.3 FL (80.0-100.0); MEAN CORPUSCULAR HEMOGLOBIN 29.2 PG (27.0-34.0); MEAN CORPUSCULAR HGB CONC 33.1 % (32.0-36.0); MONO % 6.7 % (0.0-8.0); PLATELET COUNT 224 TH/MM3 (150-450); RED BLOOD COUNT 4.62 MIL/MM3 (4.50-5.90); RED CELL DISTRIBUTION WIDTH 13.6 % (11.6-17.2); WHITE BLOOD COUNT 7.4 TH/MM3 (4.0-11.0)
[2016-09-19 19:00] LABS: ANION GAP 11 MEQ/L (5-15); AST (GOT) 50 U/L (15-37); BICARBONATE 27.8 MEQ/L (21.0-32.0); BLOOD UREA NITROGEN 7 MG/DL (7-18); CHLORIDE 98 MEQ/L (98-107); GLOMERULAR FILTRATION RATE 84 ML/MIN (>89); POTASSIUM 4.1 MEQ/L (3.5-5.1); SODIUM (NA) 137 MEQ/L (136-145)
[2016-09-19] MEDS ORDERED: METFORMIN HOLD POST IV CONTRAST SCH (19:00)
[2016-09-19 19:03] LABS: ALKALINE PHOSPHATASE 83 U/L (45-117); ALT (GPT) 66 U/L (12-78); TOTAL BILIRUBIN ADULT 0.4 MG/DL (0.2-1.0)
[2016-09-19 19:04] LABS: APTT (PATIENT) 24.3 SEC (24.3-30.1); PROTHROMBIN TIME - PATIENT 11.5 SEC (9.8-11.6)
[2016-09-19] MEDS ORDERED: SERT-129 PO (19:08)
[2016-09-19] MEDS ORDERED: LOSA25TA PO (19:08)
[2016-09-19] MEDS ORDERED: MORPHINE SULFATE 4 MG/ML INJ IV ONE (19:30)
[2016-09-19] MEDS ORDERED: SODIUM CHLOR 0.9% 250 ML INJ 250 ML IV ONE (19:30)
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
[2016-09-19] MEDS ORDERED: IOHEXOL 350 MG/ML 10 ML VIAL (for RAD DIAG) IV ONE (19:36)
--- NOTE | 2016-09-19 19:52 | RADRPT ---
EXAM DATE/TIME: 09/19/2016 18:56 [facility] COMPARISON: No previous studies available for comparison. INDICATIONS : Right lower quadrant pain for three days with bloating and nausea. IV CONTRAST: 71 cc Omnipaque 350 (iohexol) IV ORAL CONTRAST: No oral contrast ingested. RADIATION DOSE: 20.15 CTDIvol (mGy) MEDICAL HISTORY : Hypertension. Diabetes mellitus type 2. SURGICAL HISTORY : Cholecystectomy. ENCOUNTER: Initial ACUITY: 3 days PAIN SCALE: 10/10 LOCATION: Right Abdomen TECHNIQUE: Volumetric scanning of the abdomen and pelvis was performed. Using automated exposure control and ad justment of the mA and/or kV according to patient size, radiation dose was kept as low as reasonably achievable to obtain optimal diagnostic quality images. FINDINGS: There is linear atelectasis at both lung bases. Tiny 3 mm nodule right midlung. There is moderate diffuse fatty infiltration of the liver. Spleen, adrenals, kidneys and pancreas dem onstrate no acute findings. There is some malrotation of the left kidney anteriorly. The appendix is normal. There is mild constipation. No free fluid. No bowel obstruction. No adenopathy. CONCLUSION: 1. No acute findings within the abdomen. Appendix is normal. No obstructive uropathy. Malrotation of left kidney, congenital. 2. Mild constipation. 3. Diffuse fatty liver. 4. Previous cholecystectomy. Khris Colon MD on September 19, 2016 at 19:46 Board Certified Radiologist. This report was verified electronically.
[2016-09-19 21:00] LABS: AUTOMATED NEUTROPHIL # 13.2 TH/MM3 (1.8-7.7); BASOPHIL # 0.1 TH/MM3 (0-0.2); BASOPHIL % 0.8 % (0.0-2.0); EOSINOPHIL # 0.3 TH/MM3 (0-0.4); EOSINOPHIL % 1.5 % (0.0-4.0); HEMATOCRIT 34.2 % (39.0-51.0); HEMO FLAGS DIFF FINAL; LYMPH % 18.3 % (9.0-44.0); LYMPHOCYTE # 3.3 TH/MM3 (1.0-4.8); MEAN CELL VOLUME 88.3 FL (80.0-100.0); MEAN CORPUSCULAR HEMOGLOBIN 29.1 PG (27.0-34.0); MEAN CORPUSCULAR HGB CONC 32.9 % (32.0-36.0); MONO % 5.5 % (0.0-8.0); NEUT % 73.9 % (16.0-70.0); PLATELET COUNT 262 TH/MM3 (150-450); RED BLOOD COUNT 3.87 MIL/MM3 (4.50-5.90); RED CELL DISTRIBUTION WIDTH 13.7 % (11.6-17.2); WHITE BLOOD COUNT 17.8 TH/MM3 (4.0-11.0)
[2016-09-19 21:11] LABS: APTT (PATIENT) 21.1 SEC (24.3-30.1); INTERNATIONAL NORMALIZED RATIO 1.1 RATIO; PROTHROMBIN TIME - PATIENT 12.1 SEC (9.8-11.6)
--- NOTE | 2016-09-19 21:16 | HHI.HP ---
General Surgery [facility] [id number] Anastacio Lewis MD September 19, 2016 21:16
[2016-09-19] MEDS ORDERED: MISCELLANEOUS NURSING INFORMATION XX SCH (21:30)
[2016-09-19] MEDS ORDERED: SERTRALINE HCL 100 MG TAB PO SCH (21:30)
[2016-09-19] MEDS ORDERED: ACETAMINOPHEN/HYDROcodone 325 MG/5 MG TAB PO PRN ×2 (21:30)
[2016-09-19] MEDS ORDERED: MELATONIN 5 MG TAB PO SCH (21:30)
[2016-09-19] MEDS ORDERED: CHLORHEXIDINE GLUCONATE 2 % 1 PACK (2 CLOTHS) TOP PRN (21:30)
[2016-09-19] MEDS ORDERED: ACETAMINOPHEN 325 MG TAB PO PRN (21:30)
[2016-09-19] MEDS ORDERED: traZODone HCL 50 MG TAB PO SCH (21:30)
[2016-09-19] MEDS ORDERED: ONDANSETRON HCL 4 MG/2 ML VIAL IV PRN (21:30)
[2016-09-19] MEDS: metFORMIN HCL 500 MG TAB PO SCH (21:30)
[2016-09-19] MEDS ORDERED: MAGNESIUM HYDROXIDE SUSP 30 ML CUP PO PRN (21:30)
[2016-09-19] MEDS ORDERED: ENALAPRILAT 1.25 MG/ML VIAL IV PRN (21:30)
--- NOTE | 2016-09-19 21:35 | PD.CAR.PN ---
CVT Progress Note Objective: Vital Signs Date Time Temp Pulse Resp B/P Pulse Ox O2 Delivery O2 Flow Rate FiO2 09/19/16 20:47 14 09/19/16 20:45 111 16 108/56 96 Nasal Cannula 2 09/19/16 19:45 111 16 91/53 96 Nasal Cannula 2 09/19/16 19:23 120 16 109/55 90 Nasal Cannula 2 09/19/16 18:10 94 Room Air 09/19/16 18:08 110 20 09/19/16 17:52 97.3 110 20 153/97 95 Labs: Laboratory Tests Test 09/19/16 09/19/16 09/19/16 18:25 19:26 19:58 White Blood Count 7.4 TH/MM3 (4.0-11.0) Red Blood Count 4.62 MIL/MM3 (4.50-5.90) Hemoglobin 13.5 GM/DL (13.0-17.0) Hematocrit 40.8 % (39.0-51.0) Mean Corpuscular Volume 88.3 FL (80.0-100.0) Mean Corpuscular Hemoglobin 29.2 PG (27.0-34.0) Mean Corpuscular Hemoglobin 33.1 % Concent (32.0-36.0) Red Cell Distribution Width 13.6 % (11.6-17.2) Platelet Count 224 TH/MM3 (150-450) Mean Platelet Volume 9.7 FL (7.0-11.0) Neutrophils (%) (Auto) 64.0 % (16.0-70.0) Lymphocytes (%) (Auto) 25.6 % (9.0-44.0) Monocytes (%) (Auto) 6.7 % (0.0-8.0) Eosinophils (%) (Auto) 3.0 % (0.0-4.0) Basophils (%) (Auto) 0.7 % (0.0-2.0) Neutrophils # (Auto) 4.8 TH/MM3 (1.8-7.7) Lymphocytes # (Auto) 1.9 TH/MM3 (1.0-4.8) Monocytes # (Auto) 0.5 TH/MM3 (0-0.9) Eosinophils # (Auto) 0.2 TH/MM3 (0-0.4) Basophils # (Auto) 0.1 TH/MM3 (0-0.2) CBC Comment DIFF FINAL Differential Comment Prothrombin Time 11.5 SEC (9.8-11.6) Prothromb Time International 1.0 RATIO Ratio Activated Partial 24.3 SEC Thromboplast Time (24.3-30.1) Sodium Level 137 MEQ/L (136-145) Potassium Level 4.1 MEQ/L (3.5-5.1) Chloride Level 98 MEQ/L (98-107) Carbon Dioxide Level 27.8 MEQ/L (21.0-32.0) Anion Gap 11 MEQ/L (5-15) Blood Urea Nitrogen 7 MG/DL (7-18) Creatinine 0.95 MG/DL (0.60-1.30) Estimat Glomerular Filtration 84 ML/MIN (>89) Rate Random Glucose 243 MG/DL (74-106) Lactic Acid Level 4.3 mmol/L (0.4-2.0) Calcium Level 8.7 MG/DL (8.5-10.1) Total Bilirubin 0.4 MG/DL (0.2-1.0) Aspartate Amino Transf 50 U/L (15-37) (AST/SGOT) Alanine Aminotransferase 66 U/L (12-78) (ALT/SGPT) Alkaline Phosphatase 83 U/L (45-117) Total Protein 7.6 GM/DL (6.4-8.2) Albumin 3.6 GM/DL (3.4-5.0) Lipase 162 U/L (73-393) Blood Type O POSITIVE O POSITIVE Antibody Screen NEGATIVE Crossmatch Leukocyte-Reduced Red Blood Cells Blood Bank Comment Result Diagram: 09/19/16 1825 09/19/16 1825 Anastacio Lewis MD September 19, 2016 21:35
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
[2016-09-19] MEDS: DOCUSATE SODIUM 100 MG CAP PO SCH (22:20)
[2016-09-20] VITALS: BP 123/85; PULSE 116; PULSE 122; RESP 17; TEMP 98.8; O2SAT 96
[2016-09-20] MEDS: DIVALPROEX SODIUM E.R. 500 MG TAB PO SCH ×2 (00:06→09:22)
[2016-09-20] MEDS: BENZTROPINE MESYLATE 1 MG TAB PO SCH ×2 (00:06→09:22)
[2016-09-20] MEDS: DIVALPROEX SODIUM E.R. 250 MG TAB PO SCH ×2 (00:06→09:22)
[2016-09-20] MEDS: HALOPERIDOL 1 MG TAB PO SCH ×2 (00:06→09:22)
[2016-09-20 02:00] VITALS: PULSE 114
[2016-09-20] MEDS ORDERED: DEXTROSE 50% IN WATER 50 ML VIAL(D50) IV PRN (02:00)
[2016-09-20] MEDS ORDERED: GLUCAGON 1 MG/ML VIAL OTHER PRN (02:00)
[2016-09-20 04:00] VITALS: BP 123/83; PULSE 110; RESP 16; TEMP 98.8; O2SAT 97
[2016-09-20] MEDS ORDERED: CHLORHEXIDINE GLUCONATE 2 % 1 PACK (2 CLOTHS) TOP SCH (04:00)
[2016-09-20 04:22] LABS: AUTOMATED NEUTROPHIL # 10.2 TH/MM3 (1.8-7.7); BASOPHIL # 0.1 TH/MM3 (0-0.2); BASOPHIL % 0.7 % (0.0-2.0); EOSINOPHIL % 0.4 % (0.0-4.0); HEMO FLAGS DIFF FINAL; LYMPH % 11.5 % (9.0-44.0); LYMPHOCYTE # 1.4 TH/MM3 (1.0-4.8); MEAN CELL VOLUME 87.6 FL (80.0-100.0); MEAN CORPUSCULAR HGB CONC 34.3 % (32.0-36.0); MONO % 5.7 % (0.0-8.0); NEUT % 81.7 % (16.0-70.0); PLATELET COUNT 205 TH/MM3 (150-450); RED BLOOD COUNT 3.54 MIL/MM3 (4.50-5.90); RED CELL DISTRIBUTION WIDTH 13.8 % (11.6-17.2); WHITE BLOOD COUNT 12.5 TH/MM3 (4.0-11.0)
[2016-09-20 04:46] LABS: ALT (GPT) 52 U/L (12-78); ANION GAP 7 MEQ/L (5-15); AST (GOT) 31 U/L (15-37); BICARBONATE 27.6 MEQ/L (21.0-32.0); BLOOD UREA NITROGEN 11 MG/DL (7-18); CHLORIDE 101 MEQ/L (98-107); GLOMERULAR FILTRATION RATE 123 ML/MIN (>89); POTASSIUM 4.7 MEQ/L (3.5-5.1); SODIUM (NA) 136 MEQ/L (136-145)
[2016-09-20 04:48] LABS: ALKALINE PHOSPHATASE 57 U/L (45-117); TOTAL BILIRUBIN ADULT 0.3 MG/DL (0.2-1.0)
[2016-09-20 06:00] VITALS: PULSE 107
[2016-09-20] MEDS: INSULIN ASPART SUPPLEMENTAL SCALE SQ SCH ×2 (06:16→11:00)
[2016-09-20] MEDS ORDERED: LISINOPRIL 10 MG TAB PO SCH (07:00)
[2016-09-20 08:00] VITALS: BP 130/63; PULSE 104; RESP 14; TEMP 98.3; O2SAT 94
[2016-09-20] MEDS ORDERED: BACITRACIN TOP OINT 15 GM TUBE TOP SCH (09:00)
[2016-09-20] MEDS ORDERED: MAGNESIUM HYDROXIDE SUSP 30 ML CUP PO SCH (09:00)
[2016-09-20] MEDS ORDERED: DOCUSATE SODIUM 100 MG CAP PO SCH (09:00)
[2016-09-20] MEDS ORDERED: LORATADINE 10 MG TAB PO SCH (09:00)
[2016-09-20] MEDS ORDERED: amLODIPine BESYLATE 5 MG TAB PO SCH (09:00)
[2016-09-20] MEDS ORDERED: clonazePAM 1 MG TAB PO SCH (09:00)
[2016-09-20] MEDS ORDERED: LOSARTAN 25 MG TAB PO SCH (09:00)
[2016-09-20] MEDS: metFORMIN HCL 500 MG TAB PO SCH (09:00)
[2016-09-20] MEDS ORDERED: PANTOPRAZOLE SOD 20 MG DELAYED RELEASE TAB PO SCH (09:00)
[2016-09-20] MEDS: DOCUSATE SODIUM 100 MG CAP PO SCH (09:22)
[2016-09-20] MEDS ORDERED: BACTOIN EACH NARE (09:40)
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
--- NOTE | 2016-09-20 10:28 | EKG ---
Date Performed: 09/19/2016 Time Performed: 21:12:53 PTAGE: 50 years EKG: SINUS TACHYCARDIA ABNORMAL RHYTHM ECG INTERPRETATION BASED ON A DEFAULT AGE OF 40 YEARS PREVIOUS TRACING : 08/16/2016 05.48 DOCTOR: Migel Alarcon Interpretating Date/Time 09/20/2016 10:22:42
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
== END 2016-09-20 12:02 | disposition home or self-care (01) | DRG 605 ==
LOC: NEPD 17:42 → NEDA 20:55 → OBSVTOIN 21:22 → N03B 23:13
PROVIDERS: ADMIT Surgery; ATTEND Surgery
PROC: 0HQ0XZZ Repair Scalp Skin, External Approach (ICD-10-PCS; principal; 2016-09-19)
DX: S01.01XA Laceration without foreign body of scalp, initial encounter (principal); E11.9 Type 2 diabetes mellitus without complications; F20.9 Schizophrenia, unspecified; E66.9 Obesity, unspecified; R58 Hemorrhage, not elsewhere classified; K21.9 Gastro-esophageal reflux disease without esophagitis; Y93.83 Activity, rough housing and horseplay; Y92.128 Other place in nursing home as the place of occurrence of the external cause; Z68.36 Body mass index [BMI] 36.0-36.9, adult
CPT/HCPCS: 12002; 70450; 74177; 80053; 82948; 83605; 83690; 85025; 85610; 85730; 86850; 86900; 86901; 86920; 87641; 93005; 96361; 96374; 96375; J1815; J2270; J2405; J7030; Q9967

== ENCOUNTER 2017-02-27 10:02 | Emergency (ER) | payer MEDICAID ==
[~2017-02-27] VITALS: Ht 172.7 cm; Wt 107.0 kg
[~2017-02-27 10:02] MED LIST changes: +BACTOIN EACH NARE; +LOSA25TA PO; -OXYC-392 PO; -PANT40TA3 PO; -SENO8.6T5 PO; +SERT-129 PO
[2017-02-27 10:06] VITALS: BP 165/90; PULSE 109; RESP 15; TEMP 98.2; O2SAT 99
--- NOTE | 2017-02-27 10:26 | PD ---
HPI Chief Complaint: Injury Time Seen by Provider: 10:25 Travel History International Travel<30 days: No Contact w/Intl Traveler<30days: No Traveled to known affect area: No History of Present Illness HPI 51-year-old male presents to the emergency Department with complaint of intermittent bilateral leg pain for the last few months. Denies injury. Says right leg pain is worse than the left. Says his pain is in his knees and thighs. Denies paresthesias, loss of sensation, decreased range of motion, decreased strength bilateral lower extremities. Denies leg edema. Denies fever , vomiting. Denies history of DVT. Denies anticoagulant therapy. Denies difficulty ambulating. Has followed up with his primary care provider, Dr. Jordan, and was given ibuprofen and Tylenol which she has been taking for symptom management. Rates the pain 10/10. Pain is aggravated when he crosses his legs. No known relieving factors. Describes the pain as a throbbing sensation. Reports history of diabetes and takes metformin. Has no other medical complaints. No known allergies. No other modifying factors or associated signs and symptoms. History Past Medical Histgory Hx Cancer: No Social History Alcohol Use: No Tobacco Use: No Allergies-Medications (Allergen,Severity, Reaction): Coded Allergies: *MDRO Multi-Drug Resistant Organism (Verified Adverse Reaction, Unknown, 02/27/17) MRSA PCR screen POSITIVE-09/19/16 Reported Meds & Prescriptions Reported Meds & Active Scripts Active Bactroban Nasal Oint (Mupirocin Nasal Oint) 2% Oint 1 Applic EACH NARE BID 5 Days For 5 days. Colace (Docusate Sodium) 100 Mg Cap 100 Mg PO BID Clonazepam 1 Mg Tab 1 Mg PO TID Reported Sertraline (Sertraline HCl) 100 Mg Tab 100 Mg PO HS Losartan (Losartan Potassium) 25 Mg Tab 1 Tab PO DAILY Vitamin D (Ergocalciferol) 50,000 Unit Cap 50,000 Units PO SUNDAY Trazodone (Trazodone HCl) 150 Mg Tab 150 Mg PO HS Omeprazole 20 Mg Tab 20 Mg PO DAILY Olanzapine 15 Mg Tab 15 Mg PO HS Metformin (Metformin HCl) 1,000 Mg Tab 1,000 Mg PO BIDPC With meals Melatonin 5 Mg Tab 5 Mg PO HS Loratadine 10 Mg Tab 10 Mg PO DAILY Lisinopril 10 Mg Tab 10 Mg PO AC BREAKFAST Haloperidol 1 Mg Tab 1 Mg PO BID Divalproex ER (Divalproex Sodium) 500 Mg Tab 500 Mg PO BID Divalproex ER (Divalproex Sodium) 250 Mg Rosalie 250 Mg PO BID Benztropine (Benztropine Mesylate) 1 Mg Tab 1 Mg PO BID Amlodipine (Amlodipine Besylate) 5 Mg Tab 5 Mg PO DAILY Acetaminophen 325 Mg Tab 325 Mg PO TID PRN Review of Systems Except as stated in HPI: all other systems reviewed are Neg Physical Exam Narrative GENERAL: Well-nourished, well-developed male patient, in no acute distress SKIN: Warm and dry. HEAD: Atraumatic. Normocephalic. EYES: Pupils equal and round. No scleral icterus. No injection or drainage. ENT: Mucosa pink and moist. Airway patent. NECK: Trachea midline. CARDIOVASCULAR: Regular rate. RESPIRATORY: No accessory muscle use. GASTROINTESTINAL: Obese. MUSCULOSKELETAL: Bilateral lower extremities are supple and non-tense with 2+ pedal pulses and sensory intact without erythema or edema; full range of motion and strength. No calf tenderness bilaterally on palpation. Patient ambulatory in the room with a normal gait. No obvious deformities. No clubbing. No cyanosis. No edema. NEUROLOGICAL: Awake and alert. Oriented 3. No obvious cranial nerve deficits. Motor grossly within normal limits. Normal speech. PSYCHIATRIC: Appropriate mood and affect; insight and judgment normal. Data Data Last Documented VS Vital Signs Date Time Temp Pulse Resp B/P (MAP) Pulse Ox O2 Delivery O2 Flow Rate FiO2 02/27/17 10:06 98.2 109 15 165/90 (115) 99 MDM Medical Screen Exam Complete: Yes Emergency Medical Condition: No Differential Diagnosis Bilateral leg pain Narrative Course 51-year-old male with bilateral leg pain for the past few months. Denies new or recent injury. Dr. Jordan is his primary care provider and he has been evaluated for this complaint. Bilateral lower extremities are supple and nontender to 2+ pedal pulses and sensory intact without erythema or edema and with full range of motion and strength. Patient is ambulatory in the room with normal gait. Vital signs are stable and the patient is stable for outpatient follow-up and treatment. The patient has no urgent or emergent medical complaints. There is no emergent or urgent medical need at this time. I instructed the patient to follow up with their primary care provider. A medical screening exam was performed: At the time of evaluation the presenting medical condition was determined not to be of an emergent nature. The patient was given the option of receiving additional care, but declined. Patient was given options for additional community resources from which to obtain care. The Patient Has Been advised to seek medical attention for their presenting complaint. The patient has been advised to return to the ER at any time if an emergent condition develops. Primary Impression: Encounter for medical screening examination Condition: Stable Ryanne Carmichael Feb 27, 2017 10:26
[2017-02-27 10:31] VITALS: PULSE 88
== END 2017-02-27 10:32 | disposition left against medical advice (07) ==
LOC: NEPK 10:02
DX: Z00.00 Encounter for general adult medical examination without abnormal findings (principal)
CPT/HCPCS: 99281

== ENCOUNTER 2017-05-22 16:35 | Emergency (ER) | payer MEDICAID ==
[~2017-05-22 16:35] MED LIST changes: +MELA5 PO; -MELA5TAB15 PO; -OMEP20TA PO; +OMEP20TA93 PO
[2017-05-22 16:36] VITALS: BP 140/80; PULSE 100; RESP 18; TEMP 98.7; O2SAT 98
--- NOTE | 2017-05-22 17:32 | RADRPT ---
EXAM DATE/TIME: 05/22/2017 17:16 [facility] COMPARISON: CHEST SINGLE AP, August 15, 2016, 13:04. INDICATIONS : Left sided chest pain for three days. MEDICAL HISTORY : Hypertension. Diabetes mellitus type 2. SURGICAL HISTORY : Cholecystectomy. ENCOUNTER: Initial ACUITY: 3 days PAIN SCORE: 8/10 LOCATION: Left chest FINDINGS: PA and lateral views of the chest demonstrate the lungs to be symmetrically aerated without evidence of mass, infiltrate or effusion. The cardiomediastinal contours are unremarkable. Osseous structure s are intact. There are stable areas of scarring at the left base and right mid to upper lung sidhu. No superimposed infiltrate. Degenerative spurring is stable the thoracic spine. CONCLUSION: No acute disease. Stable scarring left lung base and right mid to upper lung field. Dave Tijerina MD on May 22, 2017 at 17:28 Board Certified Radiologist. This report was verified electronically.
[2017-05-22 17:37] LABS: AUTOMATED NEUTROPHIL # 3.2 TH/MM3 (1.8-7.7); BASOPHIL % 0.8 % (0.0-2.0); EOSINOPHIL # 0.1 TH/MM3 (0-0.4); EOSINOPHIL % 1.7 % (0.0-4.0); HEMATOCRIT 38.5 % (39.0-51.0); HEMOGLOBIN 12.7 GM/DL (13.0-17.0); LYMPH % 32.8 % (9.0-44.0); LYMPHOCYTE # 1.8 TH/MM3 (1.0-4.8); MEAN CELL VOLUME 82.2 FL (80.0-100.0); MEAN CORPUSCULAR HEMOGLOBIN 27.1 PG (27.0-34.0); MONO % 6.9 % (0.0-8.0); MONOCYTE # 0.4 TH/MM3 (0-0.9); NEUT % 57.8 % (16.0-70.0); PLATELET COUNT 243 TH/MM3 (150-450); RED BLOOD COUNT 4.68 MIL/MM3 (4.50-5.90); RED CELL DISTRIBUTION WIDTH 18.1 % (11.6-17.2); WHITE BLOOD COUNT 5.5 TH/MM3 (4.0-11.0)
[2017-05-22 18:05] LABS: ALBUMIN 3.8 GM/DL (3.4-5.0); AST (GOT) 14 U/L (15-37); BICARBONATE 25.9 MEQ/L (21.0-32.0); BLOOD UREA NITROGEN 9 MG/DL (7-18); CALCIUM 8.7 MG/DL (8.5-10.1); CHLORIDE 99 MEQ/L (98-107); CREATININE 0.86 MG/DL (0.60-1.30); GLOMERULAR FILTRATION RATE 94 ML/MIN (>89); GLUCOSE,RANDOM 232 MG/DL (74-106); LIPASE 109 U/L (73-393); SODIUM (NA) 134 MEQ/L (136-145)
[2017-05-22 18:06] LABS: ALT (GPT) 28 U/L (12-78)
[2017-05-22 18:09] LABS: ALKALINE PHOSPHATASE 71 U/L (45-117); TOTAL BILIRUBIN ADULT 0.3 MG/DL (0.2-1.0); TOTAL PROTEIN 7.8 GM/DL (6.4-8.2); TROPONIN I LESS THAN 0.02 NG/ML (0.02-0.05)
[2017-05-22] MEDS ORDERED: LORA-520 (19:42)
[2017-05-22] MEDS ORDERED: CHOL1CAP34 PO (19:42)
[2017-05-22] MEDS ORDERED: TYLE325T PO (19:42)
[2017-05-22] MEDS ORDERED: COLA100C5 (19:42)
[2017-05-22] MEDS ORDERED: BENZ0.5T PO (19:42)
[2017-05-22] MEDS ORDERED: TRAZ1TAB14 PO (19:42)
--- NOTE | 2017-05-22 19:55 | PD ---
HPI Chief Complaint: GI Complaint Time Seen by Provider: 19:39 Travel History International Travel<30 days: No Contact w/Intl Traveler<30days: No Traveled to known affect area: No History of Present Illness HPI 51-year-old male complains of epigastric abdominal pain and reflux symptoms. Patient states that he has history of reflux that has been seen by personal physician and [facility]. Patient states that he had endoscopy done in the past. Patient's taking Zantac on omeprazole. Patient also complained of recurrent left knee pain and left leg pain. Patient has been seen by personal physician and advised to take Tylenol for pain. Patient denies any recent injury. Patient denies any fever chills. Patient denies any chest pain or shortness of breath. Patient denies any dysuria or frequency. Patient denies any back pain. Patient has history of hypertension and diabetes. PFSH Past Medical History Arthritis: Yes Anxiety: Yes Cancer: No Cardiovascular Problems: Yes Chest Pain: Yes Diabetes: Yes Patient Takes Glucophage: Yes GERD: Yes Hiatal Hernia: Yes Hypertension: Yes Immune Disorder: No Implanted Vascular Access Dvce: No Kidney Stones: Yes (GALLSTONE) Musculoskeletal: Yes Neurologic: Yes Psychiatric: Yes Respiratory: Yes Immunizations Current: No Schizophrenia: Yes Past Surgical History Surgical History: Unable to Obtain Social History Alcohol Use: No Tobacco Use: No Substance Use: No Allergies-Medications (Allergen,Severity, Reaction): Coded Allergies: *MDRO Multi-Drug Resistant Organism (Verified Adverse Reaction, Unknown, ) MRSA PCR screen POSITIVE-09/19/16 Reported Meds & Prescriptions Reported Meds & Active Scripts Active Bactroban Nasal Oint (Mupirocin Nasal Oint) 2% Oint 1 Applic EACH NARE BID 5 Days For 5 days. Clonazepam 1 Mg Tab 1 Mg PO TID Reported Vitamin D3 (Cholecalciferol) 50,000 Unit Cap 50,000 Units PO Q7D SUNDAY Colace (Docusate Sodium) 100 Mg Capsule BID Benztropine (Benztropine Mesylate) 0.5 Mg Tab 1 Mg PO BID Allergy (Loratadine) 10 Mg Tab Trazodone (Trazodone HCl) 150 Mg Tablet 150 Mg PO HS Tylenol (Acetaminophen) 325 Mg Tab 325 Mg PO Q4H PRN Sertraline (Sertraline HCl) 100 Mg Tab 100 Mg PO HS Losartan (Losartan Potassium) 25 Mg Tab 1 Tab PO DAILY Omeprazole 20 Mg Tab 20 Mg PO DAILY Olanzapine 15 Mg Tab 15 Mg PO HS Metformin (Metformin HCl) 1,000 Mg Tab 1,000 Mg PO BIDPC With meals Melatonin 5 Mg Tab 5 Mg PO HS Lisinopril 10 Mg Tab 10 Mg PO AC BREAKFAST Haloperidol 1 Mg Tab 1 Mg PO BID Divalproex ER (Divalproex Sodium) 500 Mg Tab 500 Mg PO BID Divalproex ER (Divalproex Sodium) 250 Mg Rosalie 250 Mg PO BID Amlodipine (Amlodipine Besylate) 5 Mg Tab 5 Mg PO DAILY Review of Systems General / Constitutional: No: Fever Eyes: No: Visual changes HENT: No: Headaches Cardiovascular: No: Chest Pain or Discomfort Respiratory: No: Shortness of Breath Gastrointestinal: Positive: Abdominal Pain Genitourinary: No: Dysuria Musculoskeletal: Positive: Pain Skin: No Rash Neurologic: No: Weakness Psychiatric: No: Depression Endocrine: No: Polydipsia Hematologic/Lymphatic: No: Easy Bruising Physical Exam Narrative GENERAL: Well-nourished, well-developed patient. SKIN: Focused skin assessment warm/dry. HEAD: Normocephalic. EYES: No scleral icterus. No injection or drainage. NECK: Supple, trachea midline. No JVD or lymphadenopathy. CARDIOVASCULAR: Regular rate and rhythm without murmurs, gallops, or rubs. RESPIRATORY: Breath sounds equal bilaterally. No accessory muscle use. GASTROINTESTINAL: Abdomen soft, nondistended. Patient has mild tenderness on palpation epigastric area of the abdomen. No rebound tenderness. No mass. MUSCULOSKELETAL: No cyanosis, or edema. Patient has mild tenderness over distal left thigh and left knee joint with full range of motion of the left knee. Knee joint stable. No effusion noted. BACK: Nontender without obvious deformity. No CVA tenderness. Neurologic exam normal. Data Data Last Documented VS Vital Signs Date Time Temp Pulse Resp B/P (MAP) Pulse Ox O2 Delivery O2 Flow Rate FiO2 05/22/17 16:36 98.7 100 18 140/80 (100) 98 Orders Orders Electrocardiogram (05/22/17 16:50) Ckmb (Isoenzyme) Profile (05/22/17 16:50) Complete Blood Count With Diff (05/22/17 16:50) Comprehensive Metabolic Panel (05/22/17 16:50) Prothrombin Time / Inr (Pt) (05/22/17 16:50) Act Partial Throm Time (Ptt) (05/22/17 16:50) Troponin I (05/22/17 16:50) Lipase (05/22/17 16:50) Chest, Pa & Lat (05/22/17 16:50) CKMB (05/22/17 17:00) CKMB% (05/22/17 17:00) Al-Mag Hy-Si 40-40-4 Mg/Ml Liq (Mag-Al P (05/22/17 20:00) Gsqlz-Hbjsbd-Kzxgaj-Pb Liq ( Liq (05/22/17 20:00) Labs Laboratory Tests Test 05/22/17 17:00 05/22/17 19:25 White Blood Count 5.5 TH/MM3 Red Blood Count 4.68 MIL/MM3 Hemoglobin 12.7 GM/DL Hematocrit 38.5 % Mean Corpuscular Volume 82.2 FL Mean Corpuscular Hemoglobin 27.1 PG Mean Corpuscular Hemoglobin Concent 33.0 % Red Cell Distribution Width 18.1 % Platelet Count 243 TH/MM3 Mean Platelet Volume 9.0 FL Neutrophils (%) (Auto) 57.8 % Lymphocytes (%) (Auto) 32.8 % Monocytes (%) (Auto) 6.9 % Eosinophils (%) (Auto) 1.7 % Basophils (%) (Auto) 0.8 % Neutrophils # (Auto) 3.2 TH/MM3 Lymphocytes # (Auto) 1.8 TH/MM3 Monocytes # (Auto) 0.4 TH/MM3 Eosinophils # (Auto) 0.1 TH/MM3 Basophils # (Auto) 0.0 TH/MM3 CBC Comment DIFF FINAL Differential Comment Blood Urea Nitrogen 9 MG/DL Creatinine 0.86 MG/DL Random Glucose 232 MG/DL Total Protein 7.8 GM/DL Albumin 3.8 GM/DL Calcium Level 8.7 MG/DL Alkaline Phosphatase 71 U/L Aspartate Amino Transf (AST/SGOT) 14 U/L Alanine Aminotransferase (ALT/SGPT) 28 U/L Total Bilirubin 0.3 MG/DL Sodium Level 134 MEQ/L Potassium Level 4.1 MEQ/L Chloride Level 99 MEQ/L Carbon Dioxide Level 25.9 MEQ/L Anion Gap 9 MEQ/L Estimat Glomerular Filtration Rate 94 ML/MIN Total Creatine Kinase 171 U/L Creatine Kinase MB 3.0 NG/ML Troponin I LESS THAN 0.02 NG/ML Lipase 109 U/L MDM Medical Decision Making Medical Screen Exam Complete: Yes Emergency Medical Condition: Yes Interpretation(s) Last Impressions Chest X-Ray 05/22/17 1650 Signed Impressions: Service Date/Time: Monday, May 22, 2017 17:16 - CONCLUSION: No acute disease. Stable scarring left lung base and right mid to upper lung field. Dave Tijerina MD CBC within normal limits. CMP within normal limits. Glucose 232. Cardiac enzymes are normal. Differential Diagnosis Differential diagnosis including GERD, gastritis, PUD, pancreatitis, cholecystitis, colitis, UTI, pyelonephritis, nephrolithiasis. Narrative Course 51-year-old male with recurrent abdominal pain and left leg pain. Maalox 30 cc p.o. given. 10 cc p.o. given. Diagnosis Primary Impression: GERD (gastroesophageal reflux disease) Qualified Codes: K21.9 - Gastro-esophageal reflux disease without esophagitis Patient Instructions: General Instructions Additional Instructions: Continue with Zantac and omeprazole as directed. Follow-up with GI specialist. Return if worse. Med/Other Pt SpecificInfo: No Change to Meds Disposition: 01 DISCHARGE HOME Condition: Stable Hermelindo Pinon MD May 22, 2017 19:55
[2017-05-22] MEDS ORDERED: ALUMINUM/MAGNESIUM/SIMETH 30 ML CUP PO ONE (20:00)
[2017-05-22] MEDS ORDERED: ATROPINE/SCOPOLAM/HYOSCYAM/PB ELIXIR 10 ML CUP PO ONE (20:00)
[2017-05-22 20:11] LABS: INTERNATIONAL NORMALIZED RATIO 1.1 RATIO; PROTHROMBIN TIME - PATIENT 11.1 SEC (9.8-11.6)
--- NOTE | 2017-05-23 09:49 | EKG ---
Date Performed: 05/22/2017 Time Performed: 19:17:45 PTAGE: 51 years EKG: Sinus rhythm LOW QRS VOLTAGE IN PRECORDIAL LEADS BORDERLINE ECG PREVIOUS TRACING : 09/19/2016 21.12 DOCTOR: Migel Alarcon Interpretating Date/Time 05/23/2017 09:47:56
== END 2017-05-22 20:52 | disposition home or self-care (01) ==
LOC: NEPD 16:35
DX: K21.9 Gastro-esophageal reflux disease without esophagitis (principal); M79.605 Pain in left leg; E11.9 Type 2 diabetes mellitus without complications; I10 Essential (primary) hypertension; Z79.84 Long term (current) use of oral hypoglycemic drugs
CPT/HCPCS: 71046; 80053; 82550; 82552; 83690; 84484; 85025; 85610; 85730; 93005